=== PATIENT | male | born 1975 | race Hispanic/Latino ===

== ENCOUNTER 2023-07-24 11:32 | Inpatient (IN) | payer OTHER, SELFPAY ==
[2023-07-24 12:36] LABS: Absolute Lymphocytes (CBC) 1.7 K/uL (0.7-4.9); Hematocrit 38.9 % (39.6-49.0); Lymphocytes % 13.7 % (15.3-44.8); MCV 87.7 fL (80-100); MPV 8.1 fL (7.6-11.3); Platelets 260 thou/uL (152-406); RBC Red Blood Cell Count 4.44 M/uL (4.33-5.43)
[2023-07-24 12:42] LABS: Protime INR 1.12
[2023-07-24 12:59] LABS: Albumin 2.7 g/dL (3.4-5.0); Bilirubin Total 0.5 mg/dL (0.2-1.0); Potassium 3.3 mEq/L (3.5-5.1); Protein, Total 7.4 g/dL (6.4-8.2)
--- NOTE | 2023-07-24 13:20 | RAD REPORT ---
EXAM DESCRIPTION: RAD - Foot Right 3 View - 07/24/2023 12:56 pm CLINICAL HISTORY: PAIN COMPARISON: No comparisons TECHNIQUE: Right foot, 3 views. FINDINGS: No acute displaced fracture, dislocation or periosteal reaction. Sequelae of amputation of the fourth and fifth toes. Osseous irregularity along the head of the third and fifth metatarsals, as well as thinning and remodeling along the head of the fourth metatarsal wi th adjacent well corticated fragments. Overlying soft tissue irregularity and moderately pronounced s oft tissue swelling throughout the forefoot. No air or foreign body in the soft tissues. IMPRESSION: Questionable osseous irregularities involving the distal third-fifth metatarsals as abov e, which may be chronic, however underlying early or incompletely resolved osteomyelitis cannot be en tirely excluded. MRI would provide improved imaging sensitivity.
--- NOTE | 2023-07-24 14:09 | EDPHYS ---
Physician Documentation [facility] Name: Nikita Barros Age: 48 yrs Sex: Male : 1975 Arrival Date: 07/24/2023 Time: 11:32 Bed 19 Private MD: ED Physician Keisha Montenegro HPI: 07/24 14:46 This 48 yrs old Male presents to ER via Ambulatory with complaints of Wound kb Infection - Right foot. 14:46 The patient presents with cellulitis of the left first toe. Description: erythematous, kb swollen, warm. Onset: The symptoms/episode began/occurred 3 day(s) ago. Possible cause(s): unknown. Associated signs and symptoms: Pertinent positives: erythema, swelling. Modifying factors: the symptoms are alleviated by nothing, the symptoms are aggravated by nothing. Severity of symptoms: At their worst the symptoms were moderate, in the emergency department the symptoms are unchanged. The patient has not experienced similar symptoms in the past. The patient has not recently seen a physician. Historical: - Allergies: 11:53 No Known Allergies; ss - PMHx: 11:53 Diabetes mellitus; ss - Immunization history:: Client reports receiving the 2nd dose of the Covid vaccine. - Social history:: Smoking status: Patient denies any tobacco usage or history of. ROS: 14:44 Constitutional: Negative for fever, chills, and weight loss. kb 14:44 Skin: Positive for erythema, swelling, of the left first toe, wound. 14:44 All other systems are negative. Exam: 14:44 Constitutional: This is a well developed, well nourished patient who is awake, alert, kb and in no acute distress. Head/Face: Normocephalic, atraumatic. ENT: Moist Mucous membranes Cardiovascular: Regular rate Respiratory: Respirations even and unlabored. No increased work of breathing. Talking in full sentences MS/ Extremity: Pulses equal, no cyanosis. Neurovascular intact. Full, normal range of motion. Neuro: Awake and alert, GCS 15, oriented to person, place, time, and situation. Moves all extremities. Normal gait. 14:44 Skin: cellulitis, that is moderate, on the left first toe. Vital Signs: 11:51 Pulse 83; Resp 17; Temp 97.9(TE); Pulse Ox 100% ; Height 5 ft. 1 in. ; Pain 0/10; ss 11:53 BP 128 / 72; ss 12:57 BP 133 / 88; Pulse 78; Resp 20; Pulse Ox 99% on R/A; me1 14:00 BP 127 / 88; Pulse 79; Resp 17; Pulse Ox 100% on R/A; me1 14:30 BP 117 / 81; Pulse 79; Resp 17; Pulse Ox 100% on R/A; me1 15:49 BP 144 / 91; Pulse 76; Resp 17; Pulse Ox 97% on R/A; me1 16:37 BP 149 / 95; Pulse 79; Resp 18; Pulse Ox 100% on R/A; me1 11:51 Pain Scale: Adult ss MDM: 11:54 Patient medically screened. kb 14:06 Differential diagnosis: cellulitis, osteomyelitis, abscess, diabetic ulcer. Data kb reviewed: vital signs, nurses notes. Consideration of Admission/Observation Patient was admitted/placed on observation. Escalation of care including admission/observation considered. Management of patient was discussed with the following: Hospitalist: Dr Amaro accepts pt for admission. Counseling: I had a detailed discussion with the patient and/or guardian regarding the historical points, exam findings, and any diagnostic results supporting the discharge/admit diagnosis, lab results, radiology results, the need for further work-up and treatment in the hospital. 07/24 11:57 Order name: Blood Culture Adult (2) 07/24 11:57 Order name: CBC with Diff; Complete Time: 12:40 kb 07/24 11:57 Order name: CMP; Complete Time: 13:03 kb 07/24 11:57 Order name: Lactate w/ 2H reflex if indic.; Complete Time: 12:56 kb 07/24 11:57 Order name: Protime (+inr); Complete Time: 12:46 kb 07/24 11:57 Order name: Ptt, Activated; Complete Time: 12:46 kb 07/24 12:33 Order name: Glucose, Ancillary Testing; Complete Time: 12:35 EDMS 07/24 14:30 Order name: Basic Metabolic Panel EDMS 07/24 14:30 Order name: Basic Metabolic Panel EDMS 07/24 14:30 Order name: CBC with Automated Diff EDMS 07/24 14:30 Order name: CBC with Automated Diff EDMS 07/24 14:32 Order name: Hemoglobin A1c [facility] 07/24 14:32 Order name: Lipid Profile [facility] 07/24 14:32 Order name: Thyroid Stimulating Hormone [facility] 07/24 14:55 Order name: Glucose, Ancillary Testing; Complete Time: 15:08 [facility] 07/24 16:05 Order name: Glucose, Ancillary Testing; Complete Time: 16:06 [facility] 07/24 11:58 Order name: Foot Right 3 View XRAY; Complete Time: 13:22 kb 07/24 14:41 Order name: MRA Foot Right [facility] 07/24 11:57 Order name: EKG; Complete Time: 11:58 kb 07/24 14:30 Order name: 60g Consistent Carbohydrate (ADA 1800/1999) [facility] 07/24 14:41 Order name: CONS Physician Consult [facility] 07/24 11:57 Order name: Accucheck; Complete Time: 12:28 kb 07/24 11:57 Order name: Cardiac monitoring; Complete Time: 12:28 kb 07/24 11:57 Order name: EKG - Nurse/Tech; Complete Time: 12:28 kb 07/24 11:57 Order name: IV Saline Lock - Large Bore; Complete Time: 12:28 kb 07/24 11:57 Order name: Labs collected and sent; Complete Time: 12:28 kb 07/24 11:57 Order name: O2 Per Protocol; Complete Time: 12:28 kb 07/24 11:57 Order name: O2 Sat Monitoring; Complete Time: 12:29 kb 07/24 11:57 Order name: Vital Signs; Complete Time: 12:29 kb Administered Medications: 15:03 Drug: NS 0.9% IV 1000 ml Route: IV; Rate: 1000 ml; Site: right antecubital; me1 16:38 Follow up: IV Status: Completed infusion; IV Intake: 1000ml me1 15:03 Drug: Potassium Chloride PO 20 mEq Route: PO; me1 15:48 Follow up: Response: No adverse reaction me1 15:03 Drug: Cefepime IVPB 1 grams Route: IVPB; Rate: 200 ml/hr; Infused Over: 30 mins; [place] [facility] [place]; 15:38 Follow up: IV Status: Completed infusion; IV Intake: 100ml me1 15:49 Follow up: Response: No adverse reaction me1 15:04 Drug: Insulin Regular Human IVP 5 units {Co-Signature: db (Sharon Castanon RN).} me1 Route: IVP; Site: right antecubital; 15:48 Follow up: Response: No adverse reaction me1 15:35 Drug: vancoMYCIN IVPB 1 grams Route: IVPB; Infused Over: 2 hrs; Site: right antecubital;me1 Point of Care Testing: Blood Glucose: 12:31 Blood Glucose: 417 mg/dL; me1 15:53 Blood Glucose: 157 mg/dL; me1 Ranges: Critical Glucose Levels:Adult <50 mg/dl or >400 mg/dl <40 mg/dl or >180 mg/dl Disposition: 19:07 Co-signature as Attending Physician, Keisha Montenegro I agree with the assessment ci and plan of care. I reviewed the patient's care provided by the Advanced Practice Provider and agree with the diagnosis and treatment plan. Disposition Summary: 07/24/23 14:08 Hospitalization Ordered Hospitalization Status: Inpatient Admission kb Provider: Christian Amaro Location: Telemetry/[facility] (Inpatient) kb Condition: Stable kb Problem: new kb Symptoms: are unchanged kb Bed/Room Type: Standard kb Room Assignment: 405(07/24/23 15:11) ds4 Diagnosis - Diabetes mellitus due to underlying condition with hyperglycemia kb - Cellulitis of left lower limb - foot kb - Foot Laceration/ Open wound of foot kb Forms: - Medication Reconciliation Form kb - SBAR form kb - Leadership Thank You Letter kb Signatures: Dispatcher [employer] Verenice Michael, MAYITO LUGOP-Angy Dotson RN ROHAN Allen Crocker ds4 Marly Hsu RN RN mt1 Keisha Montenegro Danielle RN db Corrections: (The following items were deleted from the chart) 15:11 14:08 kb ds4
--- NOTE | 2023-07-24 14:09 | ER ---
Nurse's Notes [facility] Name: Nikita Barros Age: 48 yrs Sex: Male : 1975 Arrival Date: 07/24/2023 Time: 11:32 Bed 19 Private MD: Diagnosis: Diabetes mellitus due to underlying condition with hyperglycemia;Cellulitis of left lower limb-foot;Foot Laceration/ Open wound of foot Presentation: 07/24 11:51 Chief complaint: Patient states: infection to R foot x 3 days. HX of DM. Denies fever. ss Coronavirus screen: Client denies travel out of the [place] in the last 14 days. Ebola Screen: Patient denies exposure to infectious person. Patient denies travel to an Ebola-affected area in the 21 days before illness onset. Initial Sepsis Screen: Does the patient meet any 2 criteria? No. Patient's initial sepsis screen is negative. Does the patient have a suspected source of infection? Yes: Skin breakdown/wound. Risk Assessment: Do you want to hurt yourself or someone else? Patient reports no desire to harm self or others. Onset of symptoms was July 21, 2023. 11:51 Method Of Arrival: Ambulatory ss 11:51 Acuity: [place] 3 ss Historical: - Allergies: 11:53 No Known Allergies; ss - PMHx: 11:53 Diabetes mellitus; ss - Immunization history:: Client reports receiving the 2nd dose of the Covid vaccine. - Social history:: Smoking status: Patient denies any tobacco usage or history of. Screenin:55 [facility] ED Fall Risk Assessment (Adult) History of falling in the last 3 months, me1 including since admission No falls in past 3 months (0 pts) Confusion or Disorientation No (0 pts) Intoxicated or Sedated No (0 pts) Impaired Gait No (0 pts) Mobility Assist Device Used No (0 pt) Altered Elimination No (0 pt) Score/Fall Risk Level 0 - 2 = Low Risk. Abuse screen: Denies threats or abuse. Nutritional screening: No deficits noted. Tuberculosis screening: No symptoms or risk factors identified. Assessment: 12:55 General: Appears comfortable, well groomed, well developed, well nourished, Behavior is me1 calm, cooperative, appropriate for age, Reports chills for 2-3 days, fever for fever, chills and infection to right great toe and foot that started about 3 days ago. Pain: Denies pain. Neuro: Level of Consciousness is awake, alert, obeys commands, Oriented to person, place, time, situation, Appropriate for age. Cardiovascular: Capillary refill < 3 seconds Patient's skin is warm and dry. Respiratory: Airway is patent Respiratory effort is even, unlabored, Respiratory pattern is regular, symmetrical. Derm: Wound noted right great toe and foot. Vital Signs: 11:51 Pulse 83; Resp 17; Temp 97.9(TE); Pulse Ox 100% ; Height 5 ft. 1 in. ; Pain 0/10; ss 11:53 BP 128 / 72; ss 12:57 BP 133 / 88; Pulse 78; Resp 20; Pulse Ox 99% on R/A; me1 14:00 BP 127 / 88; Pulse 79; Resp 17; Pulse Ox 100% on R/A; me1 14:30 BP 117 / 81; Pulse 79; Resp 17; Pulse Ox 100% on R/A; me1 15:49 BP 144 / 91; Pulse 76; Resp 17; Pulse Ox 97% on R/A; me1 16:37 BP 149 / 95; Pulse 79; Resp 18; Pulse Ox 100% on R/A; me1 11:51 Pain Scale: Adult ss ED Course: 11:36 Patient arrived in ED. im 11:53 Triage completed. ss 11:53 Arm band placed on left wrist. ss 11:54 Verenice Tyler FNP-C [facility]. kb 11:54 Keisha Montenegro is Attending Physician. kb 12:09 Marly Hsu, ROHAN is Primary Nurse. me1 12:28 Inserted saline lock: 20 gauge in right antecubital area, using aseptic technique. me1 12:29 CBC with Diff Sent. me1 12:29 CMP Sent. me1 12:29 Lactate w/ 2H reflex if indic. Sent. me1 12:29 Protime (+inr) Sent. me1 12:29 Ptt, Activated Sent. me1 12:55 Patient has correct armband on for positive identification. Bed in low position. Call me1 light in reach. Side rails up X 1. Provided Education on: POC. Verbalized understanding.. 12:55 No provider procedures requiring assistance completed. me1 12:58 Foot Right 3 View XRAY In Process Unspecified. EDMS 14:08 Christian Amaro MD is Hospitalizing Provider. kb 14:37 Blood Culture Adult (2) Sent. me1 14:52 Hemoglobin A1c Sent. me1 15:57 Patient admitted, IV remains in place. me1 Administered Medications: 15:03 Drug: NS 0.9% IV 1000 ml Route: IV; Rate: 1000 ml; Site: right antecubital; me1 16:38 Follow up: IV Status: Completed infusion; IV Intake: 1000ml me1 15:03 Drug: Potassium Chloride PO 20 mEq Route: PO; me1 15:48 Follow up: Response: No adverse reaction me1 15:03 Drug: Cefepime IVPB 1 grams Route: IVPB; Rate: 200 ml/hr; Infused Over: 30 mins; [place] [facility] [place]; 15:38 Follow up: IV Status: Completed infusion; IV Intake: 100ml me1 15:49 Follow up: Response: No adverse reaction me1 15:04 Drug: Insulin Regular Human IVP 5 units {Co-Signature: db (Sharon Castanon RN).} me1 Route: IVP; Site: right antecubital; 15:48 Follow up: Response: No adverse reaction me1 15:35 Drug: vancoMYCIN IVPB 1 grams Route: IVPB; Infused Over: 2 hrs; Site: right antecubital;me1 Medication: 12:55 VIS not applicable for this client. me1 Point of Care Testing: Blood Glucose: 12:31 Blood Glucose: 417 mg/dL; me1 15:53 Blood Glucose: 157 mg/dL; me1 Ranges: Intake: 15:38 IV: 100ml; Total: 100ml. me1 16:38 IV: 1000ml; Total: 1100ml. me1 Outcome: 14:08 Decision to Hospitalize by Provider. kb 15:57 Admitted to Med/surg accompanied by tech, via wheelchair, room 405, with chart, Report me1 called to ROHAN Sosa. 15:57 Condition: stable 15:57 Instructed on the need for admit. 16:38 Patient left the ED. me1 Signatures: Dispatcher [employer] MARIELOSCA Verenice Tyler, MAYITO BOWEN-Angy Dotson, RN RN Janae Tierney Michelle, RN RN ms1 Sharon Castanon RN db Corrections: (The following items were deleted from the chart) 15:12 14:00 BP 117 / 81; Pulse 79bpm; Resp 17bpm; Pulse Ox 100% RA; me1 me1
[2023-07-24] MEDS ORDERED: MORPHINE 2 MG/ML SYR IV PRN (14:23)
[2023-07-24] MEDS ORDERED: ONDANSETRON 4 MG/2 ML VIAL IV PRN (14:23)
[2023-07-24] MEDS: INSULIN GLARGINE 100 UNIT/ML SQ SCH (14:32)
--- NOTE | 2023-07-24 14:39 | P.HP ---
Certification for Inpatient With expected LOS: >2 Midnights Practitioner: I am a practitioner with admitting privileges, knowledge of patient current condition, hospital course, and medical plan of care. Services: Services provided to patient in accordance with Admission requirements found in Title 42 Section 412.3 of the Code of Federal Regulations Patient History Date of Service: 07/24/23 Reason for admission: Celluitis of Right foot History of Present Illness: Age 48 AW 3 day Hx of of pain in theleft foot and swelling Allergies No Known Allergies Allergy (Unverified 07/24/23 14:57) - Past Medical/Surgical History -: Diabetes Mellitus -: AMputation of R toes Physical Examination - Vital Signs Temperature: 97.9 F Blood Pressure: 128/72 Pulse: 83 Respirations: 17 Pulse Ox (%): 100 - Physical Exam General: Alert, In no apparent distress, Oriented x3 HEENT: Atraumatic Neck: Supple Respiratory: Clear to auscultation bilaterally Cardiovascular: Edema Gastrointestinal: Normal bowel sounds, Soft and benign Musculoskeletal: No clubbing Integumentary: Other (R foot swollen infection with amputation of digits) - Studies Laboratory Data (last 24 hrs) 07/24/23 07/24/23 07/24/23 12:22 12:22 12:22 WBC 12.30 H Hgb 13.2 L Hct 38.9 L Plt Count 260 PT 12.3 INR 1.12 APTT 32.3 Sodium 130 L Potassium 3.3 L BUN 12 Creatinine 1.03 Glucose 413 H* Total Bilirubin 0.5 AST 6 L ALT 15 L Alkaline Phosphatase 81 Assessment and Plan - Problems (Diagnosis) (1) Cellulitis of right foot Current Visit: Yes Status: Acute Plan: Hx of DM poorly controlled. Tx with insulin, Antibiotics.and metformin/ labs reviewed/ MRI RO osteomyelitis Xray of foot Questionable osseous irregularities involving the distal third-fifth metatarsals as above, which may be chronic, however underlying early or incompletely resolved osteomyelitis cannot be entirely excluded. MRI would provide improved imaging sensitivity - Advance Directives Does patient have a Living Will: No Does patient have a Durable POA for Healthcare: No
[2023-07-24] MEDS ORDERED: VANCOMYCIN 1 GM/VIAL ONE (14:58)
[2023-07-24] MEDS ORDERED: NA CHLORIDE 0.9% 1,000 ML ONE (14:59)
[2023-07-24] MEDS ORDERED: CEFEPIME 1 GM/VIAL ONE (14:59)
[2023-07-24] MEDS ORDERED: NA CHLORIDE 0.9% 100 ML ONE (14:59)
[2023-07-24] MEDS ORDERED: INSULIN -REGULAR HUMAN 50 UNIT/0.5 ML ML ONE (14:59)
[2023-07-24] MEDS ORDERED: NA CHLORIDE 0.9% 250 ML ONE (15:00)
[2023-07-24] MEDS: POTASSIUM CL SA 10 MEQ TAB PO SCH ×2 (15:00→21:24)
[2023-07-24] MEDS ORDERED: VANCOMYCIN 1 GM in NA CHLORIDE 0.9% 250 ML IVPB ONE (15:00)
[2023-07-24] MEDS: INSULIN -REGULAR HUMAN 50 UNIT/0.5 ML ML SQ SCH ×2 (16:30→21:25)
[2023-07-24] MEDS: NA CHLORIDE 0.9% 1,000 ML IV SCH (16:59)
[2023-07-24] MEDS: Levofloxacin 750mg IV 750 MG/150 ML BAG IV SCH (16:59)
[2023-07-24] MEDS: METFORMIN HCL 500 MG TAB PO SCH (17:01)
[2023-07-24] MEDS: VANCOMYCIN 1 GM in NA CHLORIDE 0.9% 250 ML IVPB SCH (21:24)
[2023-07-25] MEDS: NA CHLORIDE 0.9% 1,000 ML IV SCH ×2 (01:00→11:00)
[2023-07-25 06:38] LABS: Absolute Lymphocytes (CBC) 1.4 K/uL (0.7-4.9); Hematocrit 37.3 % (39.6-49.0); Lymphocytes % 14.6 % (15.3-44.8); MCV 87.1 fL (80-100); MPV 7.9 fL (7.6-11.3); Platelets 263 thou/uL (152-406); RBC Red Blood Cell Count 4.28 M/uL (4.33-5.43)
[2023-07-25 06:54] LABS: Potassium 3.2 mEq/L (3.5-5.1)
[2023-07-25 07:05] LABS: Thyroid Stimulating Hormone 1.87 uIU/mL (0.358-3.740)
--- NOTE | 2023-07-25 07:07 | P.PN ---
Date of Service: 07/25/23 Subjective: Patient with significant erythema and swelling in the right foot. Patient appears to have osteomyelitis. MRI is pending. Physical Exam: Vitals: reviewed GEN: Alert, oriented, NAD CV: Regular rate & rhythm, no edema Pulm: Respirations are clear bilaterally ABD: Soft, nontender, nondistended MSK: No joint tenderness Integumentary: R foot swollen infection with amputation of digits Neuro: No focal deficits Problem List: 1. Cellulitis of right foot/osteomyelitis of the right foot 2. DM2 PLAN 1. Continue with IV antibiotic 2. Continue with local wound care 3. Wound care consultation/surgical consultation 4. Gentle IV hydration 5. Monitor CBC 6. Strict blood sugar monitoring; HgA1c pending 7. Pain control 8. Arrange for IV abx 9. GI and DVT prophylaxis
--- NOTE | 2023-07-25 07:47 | RAD REPORT ---
EXAM DESCRIPTION: US - Lower Extremity Arterial Bilat - 07/25/2023 12:07 am CLINICAL HISTORY: Leg pain COMPARISON: None FINDINGS: The right common femoral, superficial femoral and popliteal arteries demonstrate triphasic waveforms The right posterior tibial and dorsalis pedis arteries demonstrate monophasic waveforms The left common femoral, superficial femoral, popliteal, posterior tibial and left dorsalis pedis art eries demonstrate triphasic waveforms 3 x 1.6 centimeter right inguinal lymph node Grayscale, color and spectral analysis performed on all vessels IMPRESSION: Right lower extremity arteries appear normal Mild distal left lower extremity arterial disease 3 x 1.6 centimeter right inguinal lymph node nonspecific. Follow-up ultrasound in 3 months is recomme nded to assess stability/resolution
[2023-07-25] MEDS: VANCOMYCIN 1 GM in NA CHLORIDE 0.9% 250 ML IVPB SCH ×2 (09:00→21:17)
--- NOTE | 2023-07-25 09:48 | RAD REPORT ---
EXAM DESCRIPTION: MRIFoot Right Wo Cont07/25/2023 9:31 am CLINICAL HISTORY: Right foot pain and swelling COMPARISON: July 24, 2023 TECHNIQUE: Axial, sagittal and coronal magnetic resonance imaging of the right foot was obtained. FINDINGS: Abnormal signal involves almost the entire first proximal and distal phalanges compatible with osteomyelitis. Abnormal signal involves the distal aspect fifth metatarsal. Distal fifth metatarsal resection. Abnormal signal involves third metatarsal head and proximal aspect of the third proximal phalanx Amputation fourth digit IMPRESSION: Large area of osteomyelitis first distal and first proximal phalanx Small areas of osteomyelitis involving the third metatarsal head and proximal aspect of the third pro ximal phalanx Small area of osteomyelitis distal and fifth metatarsal
[2023-07-25] MEDS: METFORMIN HCL 500 MG TAB PO SCH ×2 (10:14→16:59)
[2023-07-25] MEDS: INSULIN GLARGINE 100 UNIT/ML SQ SCH (10:15)
[2023-07-25] MEDS: POTASSIUM CL SA 10 MEQ TAB PO SCH ×2 (10:15→21:18)
[2023-07-25] MEDS: INSULIN -REGULAR HUMAN 50 UNIT/0.5 ML ML SQ SCH ×4 (10:15→21:50)
[2023-07-25 14:23] VITALS: BMI 34.2
--- NOTE | 2023-07-25 15:46 | CON ---
History Of Present Illness: Mr. Barros is a 48-year-old male coming in with osteomyelitis of right b ig toe and cellulitis of right foot with a diabetic foot ulcer. The patient is noncompliant even tho ugh he is saying that he is taking metformin his hemoglobin A1c is close to 12. Denies any pain in h is foot or fevers at this time. Denies any other medical problems. Past Medical History: As per HPI. Past Surgical History: Noncontributory. Social History: Tobacco positive. Alcohol negative. Family History: Noncontributory. Medications: Metformin, Levaquin, vancomycin. See MAR for other medications. Allergies: NO KNOWN DRUG ALLERGIES. Review of Systems: A 10-point review was performed. Physical Examination: General: This is a 48-year-old male, lying in bed, not in any acute cardiopulmonary distress. Vital Signs: Temperature 97.8, pulse 81, respirations 16, blood pressure 161/86. HEENT: Unremarkable. Neck: Supple. Lungs: Basal crackles. Abdomen: Soft, nontender. Bowel sounds present. Extremities: No edema except the right big toe with 3+ edema, erythematous changes, and ulceration n oted with foul odor. Laboratory Data: Shows WBC 9.4 down from 12.3, hemoglobin 12.8, platelets are 263. Chemistry shows BUN of 6, creatinine 0.6, glucose is 217. Hemoglobin A1c is 11.5. Lactic acid is 1.8. MRI of the f oot shows the patient has large area of osteomyelitis involving first distal and first proximal phala nx, a small area of osteomyelitis noted in the third metatarsal head and proximal aspect of the third proximal phalanx, a small area of osteomyelitis also noted in distal fifth metatarsal. Assessment And Plan: Osteomyelitis of the first phalanx, third and fifth distal metatarsal head. We will recommend to continue IV antibiotic for 6 weeks. Wound cultures to be done. Betadine Tuesday, Tuesday, Tuesday. Cover with gauze. Keep leg elevated when possible. Diabetic neuropathy. Recomm end to have tighter control of sugar being followed by hot box operator or diabetic specialist. We wi ll follow the patient closely. Recommend IV antibiotic, vancomycin, and Levaquin for 6 weeks. NF/MODL Voice ID: [id number] Report ID: [id number]
[2023-07-25] MEDS ORDERED: METHYLPREDNISOLONE 40 MG INJ IV ONE (16:57)
[2023-07-25] MEDS: Levofloxacin 750mg IV 750 MG/150 ML BAG IV SCH (16:59)
--- NOTE | 2023-07-25 19:06 | EKG ---
Test Date: 2023-07-24 Test Time: 12:21:58 Senior Software Project Manager: RAYA MEASUREMENT RESULTS: Intervals: Rate: 82 FL: 150 QRSD: 78 QT: 378 QTc: 441 [place]: P: 49 FL: 150 QRS: 85 T: -5 INTERPRETIVE STATEMENTS: Normal sinus rhythm Abnormal QRS-T angle, consider primary T wave abnormality Abnormal ECG Compared to ECG 09/24/2008 23:49:59 T-wave abnormality now present Electronically Signed On 07-25-23 19:04:19 CDT by Jonny Laughlin
[2023-07-26] MEDS ORDERED: NA CHLORIDE 0.9% 0 ML ONE (08:40)
[2023-07-26 08:42] LABS: Potassium 3.5 mEq/L (3.5-5.1)
[2023-07-26] MEDS: POTASSIUM CL SA 10 MEQ TAB PO SCH ×2 (08:55→21:02)
[2023-07-26] MEDS: INSULIN -REGULAR HUMAN 50 UNIT/0.5 ML ML SQ SCH ×4 (08:55→21:00)
[2023-07-26] MEDS: METFORMIN HCL 500 MG TAB PO SCH ×2 (08:55→16:21)
[2023-07-26] MEDS: INSULIN GLARGINE 100 UNIT/ML SQ SCH (08:56)
[2023-07-26] MEDS: VANCOMYCIN 1.5 GM in NA CHLORIDE 0.9% 500 ML IVPB SCH ×2 (10:28→21:01)
[2023-07-26] MEDS: Levofloxacin 750mg IV 750 MG/150 ML BAG IV SCH (15:47)
[2023-07-26] MEDS: Mupirocin NASAL 2 APPL/1 GM TUBE NAS SCH (21:00)
--- NOTE | 2023-07-26 23:18 | P.PN ---
Date of Service: 07/26/23 Subjective: Patient continues to do well with no new complaints. Patient's clinical symptoms are stable. Arranging for IV antibiotic. Physical Exam: Vitals: reviewed GEN: Alert, oriented, NAD CV: Regular rate & rhythm, no edema Pulm: Respirations are clear bilaterally ABD: Soft, nontender, nondistended MSK: No joint tenderness Integumentary: R foot swollen infection with amputation of digits Neuro: No focal deficits Problem List: 1. Cellulitis of right foot/osteomyelitis of the right foot 2. DM2 PLAN 1. Continue with IV antibiotic 2. Continue with local wound care 3. Wound care consultation/ID & surgical consultation pending 4. Heplock IV 5. Monitor labs 6. Strict blood sugar monitoring; HgA1c pending 7. Pain control 8. Arrange for outpt IV abx 9. GI and DVT prophylaxis
[2023-07-27] MEDS: POTASSIUM CL SA 10 MEQ TAB PO SCH ×2 (07:58→20:48)
[2023-07-27] MEDS: Mupirocin NASAL 2 APPL/1 GM TUBE NAS SCH ×2 (07:58→20:48)
[2023-07-27] MEDS: INSULIN GLARGINE 100 UNIT/ML SQ SCH (07:58)
[2023-07-27] MEDS: METFORMIN HCL 500 MG TAB PO SCH ×2 (07:58→16:40)
[2023-07-27] MEDS: INSULIN -REGULAR HUMAN 50 UNIT/0.5 ML ML SQ SCH ×4 (07:59→20:48)
[2023-07-27] MEDS: VANCOMYCIN 1.5 GM in NA CHLORIDE 0.9% 500 ML IVPB SCH ×2 (07:59→20:47)
--- NOTE | 2023-07-27 13:45 | RAD REPORT ---
EXAM DESCRIPTION: Chest Single View CLINICAL HISTORY: 8 years Male, left PICC line Placement COMPARISON: None IMPRESSION: Placement of left upper extremity PICC terminating in the right atrium. Low lung volumes. No focal consolidation. No pleural effusion. No pneumothorax. Cardiomediastinal silhouette is within normal limits. No acute osseous abnormality. Electronically signed by: David Cortez DO 07/27/2023 1:38 AM CDT Due to temporary technical issues with the PACS/Fluency reporting system, reports are being signed by the in house radiologist without review as a courtesy to ensure prompt reporting. The interpreting r adiologist is fully responsible for the content of the report.
--- NOTE | 2023-07-27 13:46 | RAD REPORT ---
EXAM DESCRIPTION: X-ray single view chest. CLINICAL HISTORY: 48 years Male, Left PICC repositioned (pulled back 4cm) COMPARISON: 07/27/2023 at 1:20 AM TECHNIQUE: Single portable x-ray view of the chest performed on 07/27/2023 at 5:25 AM FINDINGS: The lungs are hypoinflated and are grossly clear. No focal airspace process is identified. There is no evidence of a pneumothorax. The cardiac silhouette is normal in size and configuration. The mediastinal contours are normal. No acute osseous abnormality is identified. No acute soft tissue abnormalities are seen. Lines and tubes: The tip of the left upper extremity PICC line catheter has been repositioned and n ow terminates in the region of the superior vena cava Free air: None IMPRESSION: The tip of the left upper extremity PICC line catheter has been repositioned and now ter minates in the region of the superior vena cava. Electronically signed by: Grazyna Joshi DO 07/27/2023 5:58 AM CDT Due to temporary technical issues with the PACS/Fluency reporting system, reports are being signed by the in house radiologist without review as a courtesy to ensure prompt reporting. The interpreting r adiologist is fully responsible for the content of the report.
[2023-07-27] MEDS: Levofloxacin 750mg IV 750 MG/150 ML BAG IV SCH (14:34)
[2023-07-28] MEDS: INSULIN -REGULAR HUMAN 50 UNIT/0.5 ML ML SQ SCH ×4 (07:30→21:26)
[2023-07-28] MEDS: VANCOMYCIN 1.5 GM in NA CHLORIDE 0.9% 500 ML IVPB SCH (09:00)
[2023-07-28] MEDS: Mupirocin NASAL 2 APPL/1 GM TUBE NAS SCH ×2 (09:11→21:31)
[2023-07-28] MEDS: POTASSIUM CL SA 10 MEQ TAB PO SCH ×2 (09:11→21:16)
[2023-07-28] MEDS: METFORMIN HCL 500 MG TAB PO SCH ×2 (09:11→18:30)
[2023-07-28] MEDS: INSULIN GLARGINE 100 UNIT/ML SQ SCH (09:12)
[2023-07-28] MEDS: VANCOMYCIN 1.75 GM in NA CHLORIDE 0.9% 500 ML IVPB SCH ×2 (10:30→21:16)
[2023-07-28] MEDS: Levofloxacin 750mg IV 750 MG/150 ML BAG IV SCH (14:27)
[2023-07-28] MEDS ORDERED: NA CHLORIDE 0.9% 100 ML ONE (21:24)
[2023-07-29] MEDS: POTASSIUM CL SA 10 MEQ TAB PO SCH ×2 (08:46→21:59)
[2023-07-29] MEDS: Mupirocin NASAL 2 APPL/1 GM TUBE NAS SCH ×2 (08:46→22:00)
[2023-07-29] MEDS: METFORMIN HCL 500 MG TAB PO SCH ×2 (08:46→16:04)
[2023-07-29] MEDS: INSULIN GLARGINE 100 UNIT/ML SQ SCH (08:46)
[2023-07-29] MEDS: INSULIN -REGULAR HUMAN 50 UNIT/0.5 ML ML SQ SCH ×4 (08:47→22:01)
--- NOTE | 2023-07-29 08:50 | P.PN ---
Subjective Date of Service: 07/29/23 Chief Complaint: Celluitis of Right foot Subjective: No new changes, No C/O voiced Review of Systems Unremarkable Physical Examination - Vital Signs Temperature: 98.7 F Blood Pressure: 132/79 Pulse: 74 Respirations: 14 Pulse Ox (%): 97 - Physical Exam General: Alert, In no apparent distress HEENT: Atraumatic, Normocephalic Neck: Supple, JVD not distended Respiratory: Clear to auscultation bilaterally, Normal air movement Cardiovascular: Regular rate/rhythm Gastrointestinal: Normal bowel sounds, Non-distended Musculoskeletal: No clubbing Integumentary: Diabetic ulcer (left foot) - Studies - Reviewed Microbiology Data (last 24 hrs): - Reviewed Imagings Data: - Reviewed Medications List Reviewed: Yes Assessment And Plan - Plan Problem List Osteomyelitis Left Foot Diabetic foot ulcer Diabetes mellitus type II Diabetic Foot Ulcer of Left Foot Osteomyelitis - Wound culture with Streptococcus agalactiae group B - MRI Left Foot 07/25: " Large area of osteomyelitis first distal and first proximal phalanx. Small areas of osteomyelitis involving the third metatarsal head and proximal aspect of the third proximal phalanx. Small area of osteomyelitis distal and fifth metatarsal " - Patient is on Levaquin and Vancomycin (started 07/24) Recommendations Osteomyelitis: patient will require 6 weeks of antibiotic therapy (07/24 to 09/04) Concerned about his sugar control and noncompliance. Uncontrolled diabetes (HgbA1c 11.5). Recommend continuing with IV antibiotics for best outcome. Case discussed with Colby Shin
[2023-07-29] MEDS: VANCOMYCIN 1.75 GM in NA CHLORIDE 0.9% 500 ML IVPB SCH ×2 (09:46→22:00)
--- NOTE | 2023-07-29 13:18 | RAD REPORT ---
EXAM DESCRIPTION: US - Lower Extremity Artery [facility] - 07/29/2023 12:18 pm CLINICAL HISTORY: Leg pain COMPARISON: None FINDINGS: The right common femoral, superficial femoral ,popliteal and posterior tibial arteries demonstrate tr iphasic waveforms The right dorsalis pedis arteries demonstrate monophasic waveform Grayscale, color and spectral analysis performed on all vessels IMPRESSION: Mild distal lower extremity arterial disease
[2023-07-29] MEDS ORDERED: MIDAZOLAM HCL 2 MG/2 ML INJ ONE ×2 (13:35→16:16)
[2023-07-29] MEDS ORDERED: FENTANYL CITR 100 MCG/2 ML ONE ×2 (13:35→16:16)
[2023-07-29] MEDS ORDERED: dexAMETHasone 10 MG/ML VIAL ONE (13:35)
[2023-07-29] MEDS ORDERED: EPINEPHRINE/PF 1 MG/ML AMP ONE (13:35)
[2023-07-29] MEDS ORDERED: LIDOCAINE 1% MPF 5 ML VIAL ONE (13:35)
[2023-07-29] MEDS ORDERED: NA CHLORIDE 0.9% 1,000 ML ONE (13:45)
[2023-07-29] MEDS: Levofloxacin 750mg IV 750 MG/150 ML BAG IV SCH (14:32)
[2023-07-29] MEDS ORDERED: BUPIVACAINE 0.25% PF 30 ML VIAL ONE (14:50)
--- NOTE | 2023-07-29 17:00 | P.OP ---
Preoperative diagnosis: RIGHT Great Toe Osteomyelitis, 5th Metatarsal Necrotic Wound Postoperative diagnosis: RIGHT Great Toe Osteomyelitis, 5th Metatarsal Necrotic Wound Primary procedure: Amputation of RIGHT Great Toe to MT Joint Secondary procedure: Excisional Debridement of 5th Metatarsal Necrotic Wound Anesthesia: GETA + Local Estimated blood loss: <10cc Specimen: RIGHT Great Toe, Debridement Tissue Findings: RIGHT Great Toe Osteomyelitis w/ abscess, 5th Metatarsal Necrotic Wound Complications: None Transferred to: Recovery Room Condition: Good
[2023-07-29 17:35] VITALS: O2SAT 97
--- NOTE | 2023-07-29 22:53 | OP ---
Date of Procedure: 07/29/2023 Surgeon: Amol Meza MD, Preoperative Diagnosis: Right great toe osteomyelitis, fifth metatarsal necrotic wound. Postoperative Diagnosis: Right great toe osteomyelitis, fifth metatarsal necrotic wound. Procedure Performed: An amputation of right great toe to the metatarsophalangeal joint. Secondary p rocedure, excisional debridement of fifth metatarsal necrotic wound. Anesthesia: Regional block plus local. Estimated Blood Loss: 10 cc. Specimen: Right great toe and debridement tissue. Findings: Right great toe osteomyelitis with abscess and fifth metatarsal necrotic wound. Complications: None. Disposition: Patient transferred to recovery room in good condition. Procedure In Detail: After informed consent was obtained, patient was brought to the operating room, prepped and draped in the usual sterile fashion after adequate anesthesia was achieved with a region al block. I placed additional local anesthetic of 0.25% Marcaine circumferentially around the right great toe and demarcated an area based on the dorsal flap, which was the only area of viable tissue. After I marked this area down, I used a 15 blade to cut down through subcutaneous tissues circumfere ntially around following the marking around the right great toe. I ultimately dissected back using e lectrocautery and dissection continued down to the layer of the periosteum. I then used a periosteal elevator to push back tissue up to the metatarsophalangeal joint. I then used a combination of joaquim p dissection and electrocautery to remove the right great toe at the metatarsophalangeal joint. This was sent off for pathologic examination. The area was copiously irrigated. There was 1 bleeding ve ssel encountered and this was easily ligated using electrocautery at this point. I then proceeded to irrigate the area copiously and performed minimal hemostatic maneuver at this point after the area w as cleansed appropriately and good hemostasis was achieved. I reapproximated the edges based on the plantar flap using interrupted 2-0 nylon suture with vertical mattress sutures with good approximatio n of tissues. A sterile dressing was placed over top. I then turned my attention to the fifth metat arsal where a previous amputation was performed. There was a black area of necrosis. This was circu mferentially dissected around and had some superficial wound in this area. I circumferentially disse cted this area out using a 15 blade down to subcutaneous tissues and ultimately dissected out using e lectrocautery to remove all nonviable tissue. This was sent off for pathologic examination. The are a was copiously irrigated once again. At this point, the wound was then packed with Vashe soaked Ker lix and sterile dressing was placed over top. The patient tolerated the procedure well without compl ication. Transferred to PACU in good condition. All counts were correct at the end of the case. BHUMIKA/RE Voice ID: [id number] Report ID: [id number]
[2023-07-30] MEDS: Mupirocin NASAL 2 APPL/1 GM TUBE NAS SCH ×2 (09:00→21:00)
[2023-07-30] MEDS: POTASSIUM CL SA 10 MEQ TAB PO SCH ×2 (09:11→21:53)
[2023-07-30] MEDS: METFORMIN HCL 500 MG TAB PO SCH ×2 (09:11→17:00)
[2023-07-30] MEDS: INSULIN GLARGINE 100 UNIT/ML SQ SCH (09:12)
[2023-07-30] MEDS: VANCOMYCIN 1.75 GM in NA CHLORIDE 0.9% 500 ML IVPB SCH ×2 (09:14→21:43)
[2023-07-30] MEDS: INSULIN -REGULAR HUMAN 50 UNIT/0.5 ML ML SQ SCH ×4 (09:24→21:44)
[2023-07-30] MEDS: Levofloxacin 750mg IV 750 MG/150 ML BAG IV SCH (16:48)
--- NOTE | 2023-07-30 18:27 | CON ---
Date of Consultation: 07/29/2023 Reason For Consultation: Right foot cellulitis and osteomyelitis. History Of Present Illness: The patient is a [place]ik-speaking male who states he has been in the hos pital for several days after noting significant change in his right great toe. He had multiple surge cheryle before on the right foot in the past including amputation of the fifth digit on this [place] approximately 2 years ago with continued ongoing wound of that same side of his foot. Now, the a viola became black, necrotic and has stayed black ever since and he has had trouble dealing with this g oing forward. He noted significant swelling of his great toe, however, which can begin to get progre ssively larger, worse, and as such he came to the hospital when he began drainage from the area. He was treated with antibiotics for several days with no significant improvement and as such, concern fo r osteomyelitis arose. I was consulted to see the patient regarding possible osteomyelitis of the gr eat toe and infection in that toe leading to non-resolution with medical management alone. The patie nt does have a history of diabetes and peripheral arterial disease. He takes metformin. His A1c was in the 12-13 range by his report on the previous check, although he does not have a regular followup . Past Medical History: Significant for diabetes, amputation of right toe as described. Social History: He smokes cigarettes. He denies alcohol other than intermittent and occasionally. He denies any recreational drug use. Family History: Noncontributory. Home Medications: Include metformin. He was started on Levaquin and vancomycin at the hospital. He takes no other medications at home with regularity other than metformin. Review of Systems: 10-point review of systems other than HPI, he denies. Allergies: HE HAS NO KNOWN DRUG ALLERGIES. Physical Examination: General: He is awake, alert, and oriented. Psychiatric: Appropriate, conversive. HEENT: Normocephalic. His sclerae were anicteric, but he appears to have some rings around his iris . Oropharynx is clear. Poor dentition. Neck: Supple without JVD. Chest: Normal expansion and excursion. Cardiovascular: Regular rate and rhythm. Pulmonary: Clear to auscultation bilaterally. Abdomen: Soft. Extremities: Focused examination of the right lower extremity shows a swollen, tender, distended rig ht great toe with 2 areas of abscess, which are actively draining. There appears to be a chance of c ommunicating from the plantar aspect near the interphalangeal joint going from the plantar to the yady ignacio aspect. Both of these areas are draining pus. The toe was red, swollen. The redness extends to the mid foot area. In addition, there is black necrotic tissue, which is dry on the right fourth an d fifth web space of the same said foot and tenderness along the area. Vital Signs: The patient had a vital signs checked, which were a temperature of 97.8, pulse 75, resp iratory rate was 15, blood pressure 144/78, SpO2 94% on room air. Laboratory Data: He had a laboratory exam, which revealed a white blood cell count on 07/25 is 9.4, hemoglobin 12.8, hematocrit 37.3, platelet count was 74.8. His chemistry was last performed on 07/26 . He had imaging performed, which included a foot MRI on 07/25/2023, officially read as large area o f osteomyelitis of the first distal and first proximal phalanx, small areas of osteomyelitis along th e third metatarsal head and proximal aspect of the third proximal phalanx. Small area of osteomyelit is in the distal and fifth metatarsal. In addition, he had a Doppler study on 07/29, which was offic ially read as the right dorsalis pedis arteries demonstrated monophasic waveforms, the right common f emoral, superficial femoral pop, and posterior tibial arteries are triphasic waveforms. Assessment And Plan: This is a 48-year-old male who presents with signs and symptoms of an infected great toe with osteomyelitis abscess and active infection and I will treat it adequately with non-alex gical measure and antibiotic treatment and a chronic nonhealing wound to the fifth web space of the s do said right foot. 1.I have recommended amputation of the great toe for source control of this area. I have explained the risks, benefits, and alternatives of amputation of right great toe and debridement of the foot an d affected nonhealing tissues including, but not limited to bleeding, infection, damage to surroundin g tissues, need for ongoing wound care, trouble in the perioperative period related anesthesia, blood clots, heart attack, strokes. 2.I have explained the need for ongoing medical management to control his diabetes or else no wound care will be adequate. In addition, I have explained that we need to have his peripheral arterial sy stem and peripheral venous system evaluated more thoroughly, which we will help him make arrangements as an outpatient and that medical management is critical to improvement of this in addition to the w ound care that will likely be necessary going forward. I have explained that the patient is to be no nweightbearing on this area until we get significant improvement and I have cleared him for weightbea ring at this point. The patient displayed understanding of the above stated plan, agreed to proceed as indicated. BHUMIKA/RE Voice ID: [id number] Report ID: [id number]
[2023-07-31] MEDS: INSULIN -REGULAR HUMAN 50 UNIT/0.5 ML ML SQ SCH ×5 (00:39→21:00)
[2023-07-31] MEDS: POTASSIUM CL SA 10 MEQ TAB PO SCH ×2 (08:55→21:27)
[2023-07-31] MEDS: METFORMIN HCL 500 MG TAB PO SCH ×2 (08:55→18:10)
[2023-07-31] MEDS: INSULIN GLARGINE 100 UNIT/ML SQ SCH (08:56)
[2023-07-31] MEDS: VANCOMYCIN 1.75 GM in NA CHLORIDE 0.9% 500 ML IVPB SCH ×2 (12:00→21:28)
[2023-07-31] MEDS: Levofloxacin 750mg IV 750 MG/150 ML BAG IV SCH (18:10)
[2023-07-31] MEDS ORDERED: Mupirocin NASAL 2 APPL/1 GM TUBE NAS ONE (21:21)
[2023-07-31] MEDS: Mupirocin NASAL 2 APPL/1 GM TUBE NAS SCH (21:28)
--- NOTE | 2023-07-31 22:20 | P.PN ---
Date of Service: 07/27/23 Subjective: Pt with no new changes; spoke with ID and will arrange for outpatient IV antibiotic therapy. Physical Exam: Vitals: reviewed GEN: Alert, oriented, NAD CV: Regular rate & rhythm, no edema Pulm: Respirations are clear bilaterally ABD: Soft, nontender, nondistended MSK: No joint tenderness Integumentary: R foot swollen infection with amputation of digits Neuro: No focal deficits Problem List: 1. Cellulitis of right foot/osteomyelitis of the right foot 2. DM2 PLAN 1. Continue with IV antibiotic 2. Continue with local wound care 3. Wound care consultation/ID & surgical consultation appreciated 4. Heplock IV 5. Monitor labs 6. Strict blood sugar monitoring; HgA1c pending 7. Pain control 8. Arrange for outpt IV abx 9. GI and DVT prophylaxis
--- NOTE | 2023-07-31 22:24 | P.PN ---
Date of Service: 07/28/23 Subjective: Spoke to nursing staff. Patient's wound is fairly deep. We will get general surgery evaluation. Arranging for IV antibiotic therapy at discharge. Infusion company will discuss with patient regarding payment plan. Physical Exam: Vitals: reviewed GEN: Alert, oriented, NAD CV: Regular rate & rhythm, no edema Pulm: Respirations are clear bilaterally ABD: Soft, nontender, nondistended MSK: No joint tenderness Integumentary: R foot swollen infection with amputation of digits Neuro: Diminished sensations Problem List: 1. Cellulitis of right foot/osteomyelitis of the right foot 2. DM2 PLAN 1. Continue with IV antibiotic 2. Continue with local wound care 3. Wound care consultation/ID consultation appreciated; surgical consultation pending 4. Heplock IV 5. Monitor labs 6. Strict blood sugar monitoring; HgA1c pending 7. Pain control 8. Arrange for outpt IV abx 9. GI and DVT prophylaxis
--- NOTE | 2023-07-31 22:46 | P.PN ---
Date of Service: 07/29/23 Subjective: Patient is doing well with no new complaints. However, spoke with surgery and because of the amount of infection decision was made to proceed with amputation. Patient to go to the OR later today. Physical Exam: Vitals: reviewed GEN: Alert, oriented, NAD CV: Regular rate & rhythm, no edema Pulm: Respirations are clear bilaterally ABD: Soft, nontender, nondistended MSK: No joint tenderness Integumentary: R foot swollen infection with amputation of digits Neuro: Diminished sensations Problem List: 1. Cellulitis of right foot/osteomyelitis of the right foot 2. DM2 PLAN Plan of care as mentioned below: 1. Continue with IV antibiotic 2. Continue with local wound care; scheduled for I&D 3. Wound care consultation/ID consultation appreciated; surgical consultation appreciated 4. Gentle hydration 5. Monitor labs 6. Strict blood sugar monitoring; HgA1c pending 7. Pain control 8. Arrange for outpt IV abx 9. GI and DVT prophylaxis
--- NOTE | 2023-07-31 22:48 | P.PN ---
Date of Service: 07/30/23 Subjective: Patient denies any new complaints. Clinical symptoms are improving. Patient denies any new complaints. Physical Exam: Vitals: reviewed GEN: Alert, oriented, NAD CV: Regular rate & rhythm, no edema Pulm: Respirations are clear bilaterally ABD: Soft, nontender, nondistended MSK: No joint tenderness Integumentary: Patient with amputation of the big toe. Closed wound. Open wound to the lateral side of the right foot. Neuro: Diminished sensations; otherwise, no focal deficits Problem List: 1. Cellulitis of right foot/osteomyelitis of the right foot 2. DM2 PLAN Plan of care as mentioned below: 1. Continue with IV antibiotic 2. Continue with local wound care; postop day #1 from amputation 3. Wound care consultation/ID consultation appreciated; surgical consultation appreciated 4. Gentle hydration 5. Monitor labs 6. Strict blood sugar monitoring; HgA1c pending 7. Pain control 8. Arrange for outpt IV abx 9. GI and DVT prophylaxis
--- NOTE | 2023-07-31 22:49 | P.PN ---
Date of Service: 07/31/23 Subjective: Patient is doing well with no new complaints. Continue with wound care. Physical Exam: Vitals: reviewed GEN: Alert, oriented, NAD CV: Regular rate & rhythm, no edema Pulm: Respirations are clear bilaterally ABD: Soft, nontender, nondistended MSK: No joint tenderness Integumentary: Patient with amputation of the big toe. Closed wound. Open wound to the lateral side of the right foot. Neuro: Diminished sensations; otherwise, no focal deficits Problem List: 1. Cellulitis of right foot/osteomyelitis of the right foot 2. DM2 PLAN Continue plan of care as mentioned below. 1. Continue with IV antibiotic 2. Continue with local wound care; postop day #1 from amputation 3. Wound care consultation/ID consultation appreciated; surgical consultation appreciated 4. Gentle hydration 5. Monitor labs 6. Strict blood sugar monitoring; HgA1c pending 7. Pain control 8. Arrange for outpt IV abx 9. GI and DVT prophylaxis Plan to arrange work-up with infusion company and then plan to discharge afterwards.
--- NOTE | 2023-07-31 23:21 | P.DS ---
Discharge Date: 08/01/23 Disposition: ROUTINE DISCHARGE Discharge Condition: GOOD Reason for Admission: Celluitis of Right foot Consultations: Surgery Infectious disease Brief History of Present Illness: 48-year-old gentleman who has a history of diabetes with diabetic neuropathy. Dre has had repeated infections of the right foot which required amputation. Patient had recurrent infections. Patient has been on IV antibiotic therapy. Patient's MRI is pending. Patient will be admitted to the hospital for further evaluation. Hospital Course: Patient had a PICC line placed and IV antibiotics were arranged. Patient is doing well and patient is stable for discharge home patient has infusion [facility] that will deliver the antibiotics. Will check labs weekly. Vital Signs/Physical Exam: Temp Pulse Resp BP Pulse Ox 98.1 F 79 16 146/79 H 98 07/31/23 20:00 07/31/23 20:00 07/31/23 20:00 07/31/23 20:00 07/31/23 20:00 General: Alert, In no apparent distress, Oriented x3 Laboratory Data at Discharge: WBC 9.40 thou/uL (4.3-10.9) 07/25/23 06:17 Hgb 12.8 g/dL (13.6-17.9) L 07/25/23 06:17 Hct 37.3 % (39.6-49.0) L 07/25/23 06:17 Plt Count 263 thou/uL (152-406) 07/25/23 06:17 PT 12.3 SECONDS (9.5-12.5) 07/24/23 12:22 INR 1.12 07/24/23 12:22 APTT 32.3 SECONDS (24.3-36.9) 07/24/23 12:22 Sodium 135 mEq/L (136-145) L 07/26/23 08:02 Potassium 3.5 mEq/L (3.5-5.1) 07/26/23 08:02 BUN 9 mg/dL (7-18) 07/26/23 08:02 Creatinine 0.65 mg/dL (0.70-1.30) L 07/26/23 08:02 Glucose 205 mg/dL (74-106) H 07/26/23 08:02 Total Bilirubin 0.5 mg/dL (0.2-1.0) 07/24/23 12:22 AST 6 U/L (15-37) L 07/24/23 12:22 ALT 15 U/L (16-61) L 07/24/23 12:22 Alkaline Phosphatase 81 U/L (45-117) 07/24/23 12:22 Triglycerides 115 mg/dL (<150) 07/25/23 06:17 Cholesterol 129 mg/dL (<200) 07/25/23 06:17 HDL Cholesterol 26 mg/dL (40-60) L 07/25/23 06:17 Cholesterol/HDL Ratio 4.96 07/25/23 06:17 Home Medications: Insulin Glargine,Hum.rec.anlog [Semglee] 20 unit SQ DAILY #2 syr 07/30/23 Metformin HCl [Glucophage*] 500 mg PO BIDWM #60 tab 07/30/23 Mupirocin Calcium [Bactroban Nasal*] 1 appl TOP BID #1 tube 07/30/23 Hydrocodone 10/APAP 325 [[place] 10/325] 1 tab PO Q6H PRN #30 tab 07/31/23 Insulin Glargine,Hum.rec.anlog [Lantus Solostar] 20 unit SQ BEDTIME #2 syr 08/01/23 Insulin Glargine,Hum.rec.anlog [Lantus] 20 unit SQ BEDTIME #2 vial 08/01/23 New Medications: Mupirocin Calcium [Bactroban Nasal*] 1 appl TOP BID #1 tube Metformin HCl [Glucophage*] 500 mg PO BIDWM #60 tab Insulin Glargine,Hum.rec.anlog [Lantus] 20 unit SQ BEDTIME #2 vial Insulin Glargine,Hum.rec.anlog [Lantus Solostar] 20 unit SQ BEDTIME #2 syr Hydrocodone 10/APAP 325 [[place] 10/325] 1 tab PO Q6H PRN #30 tab PRN Reason: Pain Insulin Glargine,Hum.rec.anlog [Semglee] 20 unit SQ DAILY #2 syr Physician Discharge Instructions: -DC IV and DC home -Follow-up with PCP in 1 to 2 weeks -Follow-up with General Surgery in 1 to 2 weeks -Please call Dr. Duran at [phone] if any questions regarding hospital stay -Please call nursing station at [phone] if any nursing or medication questions -Return to the emergency room if symptoms worsen Diet: ADA Activity: Fall precautions Followup: Amol Meza MD [ACTIVE - CAN ADMIT] - 1 Week (call to schedule for appointment ) NONE,NONE [Primary Care Provider] - 1-2 Weeks (call to schedule fo appointment ) Time spent managing pt's care (in minutes): 35
[2023-08-01 06:44] LABS: Absolute Lymphocytes (CBC) 2.6 K/uL (0.7-4.9); Hematocrit 38.8 % (39.6-49.0); Lymphocytes % 28.1 % (15.3-44.8); MCV 88.1 fL (80-100); MPV 7.9 fL (7.6-11.3); Platelets 341 thou/uL (152-406); RBC Red Blood Cell Count 4.41 M/uL (4.33-5.43)
[2023-08-01 06:46] LABS: Magnesium 1.7 mg/dL (1.6-2.4); Potassium 3.9 mEq/L (3.5-5.1)
[2023-08-01] MEDS: INSULIN -REGULAR HUMAN 50 UNIT/0.5 ML ML SQ SCH ×2 (07:30→11:30)
[2023-08-01] MEDS: METFORMIN HCL 500 MG TAB PO SCH (08:13)
[2023-08-01] MEDS: POTASSIUM CL SA 10 MEQ TAB PO SCH (08:13)
[2023-08-01] MEDS: INSULIN GLARGINE 100 UNIT/ML SQ SCH (08:13)
[2023-08-01] MEDS: VANCOMYCIN 1.75 GM in NA CHLORIDE 0.9% 500 ML IVPB SCH (10:22)
[2023-08-01 12:19] VITALS: BP 137/75; TEMP 97.9
== END 2023-08-01 16:54 | disposition home or self-care (01) | DRG 617 ==
LOC: ER 11:32 → ERHOLD 14:41 → 4TH 15:48
PROVIDERS: ADMIT Internal Medicine Sleep Medicine; ATTEND Hospitalist
PROC: 02HV33Z Insertion of Infusion Device into Superior Vena Cava, Percutaneous Approach (ICD-10-PCS; 2023-07-27)
PROC: 3E04329 Introduction of Other Anti-infective into Central Vein, Percutaneous Approach (ICD-10-PCS; 2023-07-27)
PROC: 02H633Z Insertion of Infusion Device into Right Atrium, Percutaneous Approach (ICD-10-PCS; 2023-07-27)
PROC: 0Y6P0Z0 Detachment at Right 1st Toe, Complete, Open Approach (ICD-10-PCS; principal; 2023-07-29 17:45)
PROC: 0JBQ0ZZ Excision of Right Foot Subcutaneous Tissue and Fascia, Open Approach (ICD-10-PCS; 2023-07-29 17:45)
DX: E11.69 Type 2 diabetes mellitus with other specified complication (principal); E11.52 Type 2 diabetes mellitus with diabetic peripheral angiopathy with gangrene; L03.115 Cellulitis of right lower limb; M86.9 Osteomyelitis, unspecified; E11.65 Type 2 diabetes mellitus with hyperglycemia; E11.40 Type 2 diabetes mellitus with diabetic neuropathy, unspecified; E11.621 Type 2 diabetes mellitus with foot ulcer; L97.519 Non-pressure chronic ulcer of other part of right foot with unspecified severity; B95.1 Streptococcus, group B, as the cause of diseases classified elsewhere; Z79.4 Long term (current) use of insulin; Z79.84 Long term (current) use of oral hypoglycemic drugs; Z89.431 Acquired absence of right foot; Z91.148 Patient's other noncompliance with medication regimen for other reason; Z79.899 Other long term (current) drug therapy
CPT/HCPCS: 36415; 36569; 71045; 80048; 80053; 80061; 80202; 82947; 83036; 83605; 83735; 84443; 85025; 85610; 85730; 87040; 87070; 87075; 87076; 87077; 87185; 87186; 87205; 88304; 88305; 88311; 93005; 93925; 93926; 96361; 96365; 96375; 99285; J0171; J0692; J1100; J1815; J2001; J2250; J2270; J2920; J3010; J7030; J7040; J7050

== ENCOUNTER 2023-08-11 20:16 | Emergency (ER) | payer SELFPAY ==
--- OUTSIDE RECORDS SUMMARY | 2023-08-11 20:19 | XMS REPORT | Continuity of Care Document ---
:1975 Author Organization [facility] t Address [address] [facility] [place] [address] Care Team Providers Name Role Phone Unavailable Unavailable Unavailable Problems This patient has no known problems. Allergies, Adverse Reactions, Alerts This patient has no known allergies or adverse reactions. Medications This patient has no known medications. Procedures This patient has no known procedures. Encounters Start End Encounter Admission Attending Care Care Encounter Source Date/Time Date/Time Type Type Clinicians Facility Department ID 2023-08-11 2023-08-11 Outpatient [facility] [id number] [place] 16:09:20 16:09:20 [id number] F Gee 2023-08-04 2023-08-04 Outpatient [facility] [id number] [place] 13:33:08 13:33:08 [id number] F Gee Results Test Description Test Time Test Comments Results Result Comments Source COMPREHENSIVE METABOLIC PANEL 2023-08-05 05:31:22 Test Item Value Reference Range Interpretation Comme nts GLUCOSE (test code = 2217) 225 MG/DL 70-99 H BUN (test code = 2208) 11 MG/DL 6-20 CREATININE (test code = 2214) 0.70 MG/DL 0.80-1.40 L eGFR (2020 CKD-EPI) (test code = 22319) 113 ML/MIN/1.73 >60 CALC BUN/CREAT (test code = 2235) 16 RATIO 6-28 SODIUM (test code = 2231) 134 MEQ/L 133-146 POTASSIUM (test code = 2228) 4.5 MEQ/L 3.5-5.4 CHLORIDE (test code = 2215) 98 MEQ/L 95-107 CARBON DIOXIDE (test code = 2206) 25 MEQ/L 19-31 CALCIUM (test code = 2209) 9.4 MG/DL 8.5-10.5 PROTEIN, TOTAL (test code = 2229) 6.9 G/DL 6.1-8.3 ALBUMIN (test code = 2201) 3.7 G/DL 3.5-5.2 CALC GLOBULIN (test code = 2240) 3.2 G/DL 1.9-3.7 CALC A/G RATIO (test code = 2234) 1.2 RATIO 1.0-2.6 BILIRUBIN, TOTAL (test code = 2206) 0.2 MG/DL <=1.2 ALKALINE PHOSPHATASE (test code = 2204) 80 U/L 40-118 AST (test code = 2218) 17 U/L 9-50 ALT (test code = 2219) 24 U/L 5-50 LIPID [id number] 05:31:22 Test Item Value Reference Range Interpretation Comments CHOLESTEROL (test 174 MG/DL <200 code = 2210) TRIGLYCERIDES (test 169 MG/DL <150 H code = 2232) HDL CHOLESTEROL (test 40 MG/DL >39 code = 2220) CALC LDL CHOL (test 105 MG/DL <100 H NOTE: C ALCULATED LDL code = 2237) IS BASED ON STACI-LOYA METHOD WHICHINCLUDES ADJUSTABLE TRIGLYCERIDE:VL DL CHOLESTEROL RAT IO.THIS FACTOR VARIES B Y MEASURED TRIGLY CERIDE AND NON-HDLCHOL ESTEROL CONCENTRATIONS WITH INCREASED CALCU LATED LDL SEENIN HIGH ER TRIGLYCERIDE OR LOWER NON-HDL SPECIME NS. FOR MOREINFORMATION , SEE CLIENT ANNOUNCE MENT AT [email or web address] RATIO LDL/HDL 2.63 RATIO <3.55 (test code = 2238) HEMOGLOBIN [id number] 05:17:52 Test Item Value Reference Range Interpretation Comments HEMOGLOBIN A1c (test 11.4 % 4.2-5.6 H AMERI CAN DIABETES code = 25065) ASSOCIATION IDELINES FOR HGB A1C: PREDIABETES/INC REASED RISK . . . . . . . 5 .7-6.4% DIAGNOSIS OF DI ABETES . . . . . . . . . >=6 .5% WITH CONFIRMATION OR APPROPRIATE SYMPTOMS NOTE: ASSAY MAY BE AFFECTED BY HEMOGLOBINOPATH IES (SICKLE CELL ANEMIA, S- C DISEASE, OTHERS) OR SERA FICIALLY LOWERED BY DECR EASED RED CELL SURVIVAL ( HEMOLYTIC ANEMIAS, BLOOD LOSS, ETC.). CONSIDER ALTERN ATE TESTING OR LABORATORY C ONSULTATION. CBC W/AUTO DIFF WITH [id number] 03:40:10 Test Item Value Reference Range Interpretation Comments WBC (test code = 9.8 K/UL 3.5-11.0 1001) RBC (test code = 4.49 M/UL 4.50-6.10 L 1002) HEMOGLOBIN (test 13.3 G/DL 13.5-17.0 L code = 1003) HEMATOCRIT (test 40.0 % 40.0-51.0 code = 1004) MCV (test code = 89.1 fL 80.0-99.0 1005) MCH (test code = 29.6 PG 25.0-33.0 1006) MCHC (test code = 33.3 G/DL 31.0-36.0 1007) RDW (test code = 12.2 % 11.5-15.0 1038) NEUTROPHILS (test 74.0 % code = 1008) LYMPHOCYTES (test 17.9 % code = 1010) MONOCYTES (test code 6.1 % = 1011) EOSINOPHILS (test 1.3 % code = 1012) BASOPHILS (test code 0.3 % = 1013) IMMATURE 0.4 % GRANULOCYTES (test code = 1036) NUCLEATED RBCS (test 0.0 /100 See_Comment [Autom ated message] code = 1065) WBC'S The system [employer] generated this result transmitted ref erence range: 0.0. The reference range was not used to int erpret this result as normal/abnormal . PLATELET COUNT (test 356 K/UL 130-400 code = 1015) ABSOLUTE NEUTROPHILS 7.25 K/UL 1.50-7.50 (test code = 1066) ABSOLUTE LYMPHOCYTES 1.75 K/UL 1.00-4.00 (test code = 1067) ABSOLUTE MONOCYTES 0.60 K/UL 0.20-1.00 (test code = 1068) ABSOLUTE EOSINOPHILS 0.13 K/UL 0.00-0.50 (test code = 1040) ABSOLUTE BASOPHILS 0.03 K/UL 0.00-0.20 (test code = 1069) ABS IMMATURE 0.04 K/UL 0.00-0.10 GRANULOCYTES (test code = 1020) ABS NUCLEATED RBCS 0.00 K/UL 0.00-0.11 UNLESS O THERWISE (test code = 53606) INDICATE D, ALL TESTING PERFORM ED AT [facility]ICAL [facility] [place] [address] [place] [address] SARBJIT FISHER DIRECTOR: Angella SMITH FRANCIA NUMBER [id number] CAP ACCREDITATION N O. [id number]
--- NOTE | 2023-08-11 20:54 | ER ---
Nurse's Notes [facility] Name: Nikita Barros Age: 48 yrs Sex: Male : 1975 Arrival Date: 08/11/2023 Time: 20:16 Bed 11 Private MD: Diagnosis: Left arm PICC line problem, vascular access management, encounter for dressing change for the left arm PICC line Presentation: 08/11 20:26 Chief complaint: Patient states: has a left upper PICC line, which he had the dressing ap3 changed today at the [facility] office and he is now having an issue flushing. Coronavirus screen: At this time, the client does not indicate any symptoms associated with coronavirus-19. Ebola Screen: No symptoms or risks identified at this time. Initial Sepsis Screen:. Risk Assessment: Do you want to hurt yourself or someone else? Patient reports no desire to harm self or others. Onset of symptoms was August 11, 2023. 20:26 Method Of Arrival: Ambulatory ap3 20:27 Initial Sepsis Screen: Does the patient meet any 2 criteria? No. Patient's initial ap3 sepsis screen is negative. Does the patient have a suspected source of infection? Yes: Other: PICC line present in the left upper arm. 20:27 Acuity: [place] 4 ap3 Triage Assessment: 20:28 General: Appears in no apparent distress. Behavior is calm, cooperative, appropriate ap3 for age. Pain: Denies pain. Neuro: Level of Consciousness is awake, alert, obeys commands, Oriented to person, place, time, situation. Cardiovascular: Patient's skin is warm and dry. Respiratory: Airway is patent Respiratory effort is even, unlabored, Respiratory pattern is regular, symmetrical. Derm: PICC line in place in the patients left upper arm. Historical: - Allergies: 20:27 No Known Allergies; ap3 - PMHx: 20:27 diabetes mellitus; ap3 - Immunization history:: Client reports having NOT received the Covid vaccine. - Social history:: Smoking status: Patient denies any tobacco usage or history of. - Family history:: not pertinent. Screenin:[facility] ED Fall Risk Assessment (Adult) History of falling in the last 3 months, ap3 including since admission No falls in past 3 months (0 pts). Abuse screen: Denies threats or abuse. Nutritional screening: No deficits noted. Tuberculosis screening: No symptoms or risk factors identified. Assessment: 20:58 General: DC HOME AMBULATORY. bp Vital Signs: 20:27 BP 152 / 86; Pulse 107; Resp 18; Temp 98.6; Pulse Ox 100% ; Weight 81.19 kg; ap3 ED Course: 20:20 Patient arrived in ED. jj6 20:27 Satish Alfaro MD is Attending Physician. sp4 20:28 Triage completed. ap3 20:29 Arm band placed on right wrist. ap3 20:29 Patient has correct armband on for positive identification. ap3 20:58 No provider procedures requiring assistance completed. Patient did not have IV access bp during this emergency room visit. Administered Medications: No medications were administered Medication: 20:29 VIS not applicable for this client. ap3 Outcome: 20:54 Discharge ordered by . sp4 20:58 Discharged to home ambulatory, bp 20:58 Condition: stable 20:58 Discharge instructions given to patient, Instructed on discharge instructions, follow up and referral plans. Demonstrated understanding of instructions, follow-up care, 20:59 Patient left the ED. bp Signatures: Sgaar Villeda, RN RN bp Maricarmen Galeana RN RN ap3 Elizabeth Whitmore jj6 Satish Alfaro MD MD sp4
--- NOTE | 2023-08-11 20:54 | EDPHYS ---
Physician Documentation [facility] Name: Nikita Barros Age: 48 yrs Sex: Male : 1975 Arrival Date: 08/11/2023 Time: 20:16 Bed 11 Private MD: ED Physician Satish Alfaro HPI: 08/11 20:27 This 48 yrs old Male presents to ER via Ambulatory with complaints of IV sp4 PROBLEM. 20:48 28-year-old male presents with complaint of a nonfunctional PICC line. Patient states sp4 left arm PICC line was placed today by the nurse in the [facility]. Patient reports that line not infusing medication properly and he feels discomfort. PICC line was placed for management of the right foot infection/diabetic foot complications and patient states he has been managed with vancomycin twice a day via PICC line. . Historical: - Allergies: 20:27 No Known Allergies; ap3 - PMHx: 20:27 diabetes mellitus; ap3 - Immunization history:: Client reports having NOT received the Covid vaccine. - Social history:: Smoking status: Patient denies any tobacco usage or history of. - Family history:: not pertinent. ROS: 20:48 Constitutional: Negative for fever, chills, and weight loss, Cardiovascular: Negative sp4 for chest pain, palpitations, and edema, positive nonfunctional left arm PICC line 20:48 All other systems are negative, Exam: 20:48 Constitutional: This is a well developed, well nourished patient who is awake, alert, sp4 and in no acute distress. Head/Face: Normocephalic, atraumatic. Eyes: Pupils equal round and reactive to light, extra-ocular motions intact. Lids and lashes normal. Conjunctiva and sclera are not injected. Cornea within normal limits. Periorbital areas with no swelling, redness, or edema. ENT: Nares patent. No nasal discharge, no septal abnormalities noted. Tympanic membranes are normal and external auditory canals are clear. Oropharynx with no redness, swelling, or masses, exudates, or evidence of obstruction, uvula midline. Mucous membranes moist. Neck: Trachea midline, no thyromegaly or masses palpated, and no cervical lymphadenopathy. Supple, full range of motion without nuchal rigidity, or vertebral point tenderness. Chest/axilla: Normal chest wall appearance and motion. Nontender with no deformity. No lesions are appreciated. Cardiovascular: Regular rate and rhythm with a normal S1 and S2. No gallops, murmurs, or rubs. Normal PMI, no JVD. No pulse deficits. Left upper arm PICC line double port, on initial exam the line does draw back blood and flushes seems to be flushing properly. Respiratory: Lungs have equal breath sounds bilaterally, clear to auscultation and percussion. No rales, rhonchi or wheezes noted. No increased work of breathing, no retractions or nasal flaring. Abdomen/GI: Soft, non-tender, with normal bowel sounds. No distension or tympany. No guarding or rebound. No evidence of tenderness throughout. Back: No spinal tenderness. No costovertebral tenderness. Skin: Warm, dry with normal turgor. Normal color with no rashes, no lesions, and no evidence of cellulitis. MS/ Extremity: Pulses equal, no cyanosis. Neurovascular intact. Full, normal range of motion. Right foot with transmetatarsal amputation -dressing in place Neuro: Awake and alert, GCS 15, oriented to person, place, time, and situation. Cranial nerves II-XII grossly intact. Motor strength 5/5 in all extremities. Sensory grossly intact. Psych: Awake, alert, with orientation to person, place and time. Behavior, mood, and affect are within normal limits Vital Signs: 20:27 BP 152 / 86; Pulse 107; Resp 18; Temp 98.6; Pulse Ox 100% ; Weight 81.19 kg; ap3 Procedures: 20:48 Performed Dressing change and PICC line flushing. Left upper arm PICC line was flushed sp4 with saline after blood was collected from both ports. Dressing was taken off, the site was sanitized with chlorhexidine. Dressing was exchanged and again the line seems to be drawing back blood properly out of both ports and it flushes properly. At this time the line does not need to be exchanged patient is stable for discharge home. . MDM: 20:48 Patient medically screened. sp4 20:48 Differential Diagnosis altered mental status, sepsis, flu, Vascular report compromise. sp4 Data reviewed: vital signs, nurses notes, old medical records. ED course: Patient is stable for discharge home. Advised to return to the emergency room in case there are any more problems with the PICC line. Administered Medications: No medications were administered Disposition Summary: 08/11/23 20:54 Discharge Ordered Notes: Location: Home sp4 Problem: new sp4 Symptoms: have improved sp4 Condition: Stable sp4 Diagnosis - Left arm PICC line problem, vascular access management, encounter for dressing sp4 change for the left arm PICC line Followup: sp4 - With: Private Physician - When: 7 - 10 days - Reason: Recheck today's complaints Discharge Instructions: - Discharge Summary Sheet sp4 - PICC Home Care Guide sp4 Forms: - Patient Portal Instructions sp4 Signatures: Maricarmen Galeana RN RN ap3 Satish Alfaro MD MD sp4
[2023-08-11 22:32] VITALS: BP 152/86; TEMP 98.6; O2SAT 100
== END 2023-08-11 20:59 | disposition home or self-care (01) ==
LOC: ER 20:16
DX: T82.898A Other specified complication of vascular prosthetic devices, implants and grafts, initial encounter (principal)
CPT/HCPCS: 99282

== ENCOUNTER 2023-08-27 08:58 | Emergency (ER) | payer SELFPAY ==
--- OUTSIDE RECORDS SUMMARY | 2023-08-27 09:01 | XMS REPORT | Continuity of Care Document ---
:1975 Author Organization [facility] t Address [address] [facility] [address] [place] [address] Care Team Providers Name Role Phone Unavailable Unavailable Unavailable Problems This patient has no known problems. Allergies, Adverse Reactions, Alerts This patient has no known allergies or adverse reactions. Medications This patient has no known medications. Procedures This patient has no known procedures. Encounters Start End Encounter Admission Attending Care Care Encounter Source Date/Time Date/Time Type Type Clinicians Facility Department ID 2023-08-19 2023-08-19 Outpatient [facility] [place] 09:54:57 09:54:57 [id number] F Gee 2023-08-18 2023-08-18 Outpatient [facility] [place] 09:02:12 09:02:12 [id number] F Gee 2023-08-16 2023-08-16 Outpatient [facility] [place] 16:14:07 16:14:07 [id number] F Gee 2023-08-11 2023-08-11 Outpatient [facility] [place] 16:09:20 16:09:20 [id number] F [place] 2023-08-04 2023-08-04 Outpatient [facility] [id number] [place] 13:33:08 13:33:08 [id number] [facility] Results Test Description Test Time Test Comments Results Result Comments Source AEROBIC AND ANAEROBIC CULTURE PROFILE 2023-08-22 15:54:17 Test Item Value Reference Range Interpretation Comme nts CULTURE, ROUTINE SPECIMEN NUMBER: Yesenia SAIRA Montero, ROUTINE SPECIMEN NUMBER: (test code = 80434) [id number] SPECIMEN COMMENT: R GREAT TOE SOURCE: TOE REP ORT STATUS: FINAL DIRECT GRAM STAIN: ABU NDANT WBCs OBSERVED ABUNDANT GRAM N EGATIVE BACILLI ISOLATE NUMBER 1: ORGAN ISM: 08/20/2023 ABUNDANT GRAM NEGATIVE B ACILLI IDENTIFICATION: 08/21/2023 ESCH ERICHIA COLI CONFIRMED POSITIVE EXTEND ED-SPECTRUM BETA-LACTAMASE (ESBL). THESE O RGANISMS ARE UNIFORMLY RESISTANT TO AL L PENICILLINS, CEPHALOSPORINS AND AZTREONAM. E. COLI ESBL ------AMOXICILLIN/CA INTERMED 16/8AM PICILLIN RESISTANT >16CEFAZOLIN R ESISTANT >16CEFTRIAXONE RESISTANT >32CI PROFLOXACIN RESISTANT >2ERTAPENEM SEN SITIVE <=0.5LEVOFLOXACIN RESISTANT >4MER OPENEM SENSITIVE <=1PIP/TAZOBAC SENSITIVE <=16TETRACYCLINE RESISTANT >8TOB RAMYCIN RESISTANT >8TRIMETH/SULFA SENSITIVE <=2/38 NOTE: NUMBERS DISPLAY ED REPRESENT MINIMUM INHIBITORY CONC ENTRATION (JONNATHAN) WHICH IS EXPRESSED IN MC G/ML. CULTURE, ANAEROBIC SPECIMEN NUMBER: A CULT URE, ANAEROBIC SPECIMEN NUMBER: (test code = 25776) [id number] SPECIMEN COMMENT: R GREAT TOE SOURCE: TOE REP ORT STATUS: FINAL ISOLATE NUMBER 1: ORGAN ISM: 08/22/2023 MODERATE ANAEROBIC ORGAN ISM RECOVERED IDENTIFICATION: PREVOTELLA BIVIA ADDITIONAL OBSE RVATIONS: SUSCEPTIBILITIES NOT ROUTINELY P ERFORMED AND/OR [facility]) HAS ESTABLISHED NO CRITERIA FOR SUSCEPTIBILITIE S [id number] 23:55:09 Test Item Value Reference Range Interpretation Comments VANCOMYCIN (test code 4.9 UG/ML SEE BELOW L Vanco mycin = 3038) Recommended Ran ges Trough: 10.0-20 .0 UG/ML Peak: 25. 0-40.0 UG/ML Note: For complicated inf ections (bacteremia, endocarditis, meningitis, etc .), appropriate tro ugh range is 15.0-2 0.0 ug/mL. VANCOMYCIN, [id number] 23:55:09 Test Item Value Reference Range Interpretation Comments VANCOMYCIN, PEAK (test code = 3024) 4.8 UG/ML 25.0-40.0 L VANCOMYCIN, [id number] 23:55:09 Test Item Value Reference Range Interpretation Comments VANCOMYCIN, TROUGH 4.9 UG/ML 10.0-20.0 L Note: Fo r complicated (test code = 3023) infection s (bacteremia, endocarditis,me ningitis, etc.), appropri ate range is 15.0-20.0 ug /mL. UNLESS OTHERWIS E INDICATED, ALL TESTING PERFORMED AT [facility] [address] [place] [address] [facility] DIRECTOR: Angella SMITH FRANCIA NUMBER [id number] CAP ACCREDITATION N O. [id number] COMPREHENSIVE METABOLIC [id number] 05:05:25 Test Item Value Reference Range Interpretation Comments GLUCOSE (test code = 2217) 102 MG/DL 70-99 H BUN (test code = 220) 11 MG/DL 6-20 CREATININE (test code = 221) 0.60 MG/DL 0.80-1.40 L eGFR (2020 CKD-EPI) (test 118 ML/MIN/1.73 >60 code = 85112) CALC BUN/CREAT (test code = 18 RATIO 6-28 2234) SODIUM (test code = 223) 140 MEQ/L 133-146 POTASSIUM (test code = 2228) 4.5 MEQ/L 3.5-5.4 CHLORIDE (test code = 221) 104 MEQ/L 95-107 CARBON DIOXIDE (test code = 24 MEQ/L -31 2205) CALCIUM (test code = 2209) 9.6 MG/DL 8.5-10.5 PROTEIN, TOTAL (test code = 7.1 G/DL 6.1-8.3 2228) ALBUMIN (test code = 220) 3.8 G/DL 3.5-5.2 CALC GLOBULIN (test code = 3.3 G/DL 1.9-3.7 2239) CALC A/G RATIO (test code = 1.2 RATIO 1.0-2.6 2233) BILIRUBIN, TOTAL (test code = 0.4 MG/DL <=1.2 2206) ALKALINE PHOSPHATASE (test 71 U/L 40-118 code = 2204) AST (test code = 2218) 19 U/L 9-50 ALT (test code = 2219) 20 U/L 5-50 CBC W/AUTO DIFF WITH [id number] 01:43:15 Test Item Value Reference Range Interpretation Comments WBC (test code = 5.6 K/UL 3.5-11.0 1001) RBC (test code = 4.67 M/UL 4.50-6.10 1002) HEMOGLOBIN (test code 13.4 G/DL 13.5-17.0 L = 1003) HEMATOCRIT (test code 40.6 % 40.0-51.0 = 1004) MCV (test code = 86.9 fL 80.0-99.0 1005) MCH (test code = 28.7 PG 25.0-33.0 1006) MCHC (test code = 33.0 G/DL 31.0-36.0 1007) RDW (test code = 12.7 % 11.5-15.0 1038) NEUTROPHILS (test 59.1 % code = 1008) LYMPHOCYTES (test 27.1 % code = 1010) MONOCYTES (test code 8.8 % = 1011) EOSINOPHILS (test 4.1 % code = 1012) BASOPHILS (test code 0.5 % = 1013) IMMATURE GRANULOCYTES 0.4 % (test code = 1036) NUCLEATED RBCS (test 0.0 /100 WBC'S See_Comment [Aut omated code = 1065) message] The sy stem which generated this result transmitted reference range : 0.0. The refere nce range was not u sed to interpret th is result as normal/abnormal . PLATELET COUNT (test 234 K/UL 130-400 code = 1015) ABSOLUTE NEUTROPHILS 3.31 K/UL 1.50-7.50 (test code = 1066) ABSOLUTE LYMPHOCYTES 1.52 K/UL 1.00-4.00 (test code = 1067) ABSOLUTE MONOCYTES 0.49 K/UL 0.20-1.00 (test code = 1068) ABSOLUTE EOSINOPHILS 0.23 K/UL 0.00-0.50 (test code = 1040) ABSOLUTE BASOPHILS 0.03 K/UL 0.00-0.20 (test code = 1069) ABS IMMATURE 0.02 K/UL 0.00-0.10 GRANULOCYTES (test code = 1020) ABS NUCLEATED RBCS 0.00 K/UL 0.00-0.11 (test code = 49056) VANCOMYCIN, [id number] 07:20:40 Test Item Value Reference Range Interpretation Comments VANCOMYCIN, TROUGH 27.1 UG/ML 10.0-20.0 H Note: Fo r complicated (test code = 3023) infection s (bacteremia, endocarditis,me ningitis, etc.), appropri ate range is 15.0-20.0 ug /mL. UNLESS OTHERWIS E INDICATED, ALL TESTING PERFORMED AT [facility] [address] [place] [address] [facility] DIRECTOR: Angella SMITH FRANCIA NUMBER [id number] CAP ACCREDITATION N O. [id number] COMPREHENSIVE METABOLIC [id number] 05:31:22 Test Item Value Reference Range Interpretation Comments GLUCOSE (test code = 221) 225 MG/DL 70-99 H BUN (test code = 220) 11 MG/DL 6-20 CREATININE (test code = 221) 0.70 MG/DL 0.80-1.40 L eGFR (2020 CKD-EPI) (test 113 ML/MIN/1.73 >60 code = 70156) CALC BUN/CREAT (test code = 16 RATIO 6-28 2234) SODIUM (test code = 2230) 134 MEQ/L 133-146 POTASSIUM (test code = 2228) 4.5 MEQ/L 3.5-5.4 CHLORIDE (test code = 2215) 98 MEQ/L 95-107 CARBON DIOXIDE (test code = 25 MEQ/L 2205) CALCIUM (test code = 2209) 9.4 MG/DL 8.5-10.5 PROTEIN, TOTAL (test code = 6.9 G/DL 6.1-8.3 2228) ALBUMIN (test code = 220) 3.7 G/DL 3.5-5.2 CALC GLOBULIN (test code = 3.2 G/DL 1.9-3.7 2239) CALC A/G RATIO (test code = 1.2 RATIO 1.0-2.6 2233) BILIRUBIN, TOTAL (test code = 0.2 MG/DL <=1.2 2206) ALKALINE PHOSPHATASE (test 80 U/L 40-118 code = 2204) AST (test code = 2218) 17 U/L 9-50 ALT (test code = 2219) 24 U/L 5-50 LIPID [id number] 05:31:22 Test Item Value Reference Range Interpretation [...] MOREINFORMATION , SEE CLIENT ANNOUNCE MENT AT [email or web address] [email or web address] LDL/HDL 2.63 RATIO <3.55 (test code = 2238) HEMOGLOBIN [id number] 05:17:52 Test Item Value Reference Range Interpretation Comments HEMOGLOBIN A1c (test 11.4 % 4.2-5.6 H AMERIC AN DIABETES code = 17886) ASSOCIATION IDELINES FOR HGB A1C: PREDIABETES/INC REASED [...] LABORATORY C ONSULTATION. CBC W/AUTO DIFF WITH [id number] 03:40:10 Test Item Value Reference Range Interpretation [...] message] code = 1065) WBC'S The system [employer] generated this result transmitted ref erence range: [...] 0.00-0.11 UNLESS O THERWISE (test code = 40908) INDICATE D, ALL TESTING PERFORM ED AT [facility]ICAL [facility]. [address] [place], [place] [address] [place] [address] DIRECTOR: Angella SMITH FRANCIA NUMBER [id number] CAP ACCREDITATION N O. [id number]
--- NOTE | 2023-08-27 09:24 | ER ---
Nurse's Notes [facility] Name: Nikita Barros Age: 48 yrs Sex: Male : 1975 Arrival Date: 08/27/2023 Time: 08:58 Bed 4 Private MD: Diagnosis: Encounter for change or removal of nonsurgical wound dressing Presentation: 08/27 09:09 Chief complaint: Patient states: LUE PICC line needs a dressing change. Coronavirus ll1 screen: Vaccine status: Patient reports receiving the 2nd dose of the covid vaccine. Client denies travel out of the [place] in the last 14 days. At this time, the client does not indicate any symptoms associated with coronavirus-19. Ebola Screen: Patient denies travel to an Ebola-affected area in the 21 days before illness onset. Initial Sepsis Screen: Does the patient meet any 2 criteria? No. Patient's initial sepsis screen is negative. Does the patient have a suspected source of infection? No. Patient's initial sepsis screen is negative. Risk Assessment: Do you want to hurt yourself or someone else? Patient reports no desire to harm self or others. Onset of symptoms was August 27, 2023. 09:09 Method Of Arrival: Ambulatory ll1 09:09 Acuity: [place] 5 ll1 Triage Assessment: 09:10 General: Appears in no apparent distress. Behavior is calm, cooperative, appropriate ll1 for age, Needs PICC line dressing change to LUE. Pain: Denies pain. Neuro: No deficits noted. Cardiovascular: No deficits noted. Respiratory: No deficits noted. Historical: - Allergies: 09:09 No Known Allergies; ll1 - PMHx: 09:09 diabetes mellitus; ll1 - Immunization history:: Adult Immunizations up to date. - Social history:: Smoking status: Patient denies any tobacco usage or history of. Screenin:24 [facility] ED Fall Risk Assessment (Adult) History of falling in the last 3 months, ld1 including since admission No falls in past 3 months (0 pts). Abuse screen: Denies threats or abuse. Denies injuries from another. Nutritional screening: No deficits noted. Tuberculosis screening: No symptoms or risk factors identified. Assessment: 09:24 Reassessment: See triage assessment. ld1 09:25 Reassessment: Pt states "I just need my PICC line dressing changed.". ld1 09:39 Reassessment: Removed old dressing - new sterile dressing applied to left upper arm. ld1 Vital Signs: 09:09 BP 175 / 97; Pulse 83; Resp 16; Temp 97.5; Pulse Ox 100% ; Weight 81.65 kg; Height 5 ll1 ft. 2 in. ; Pain 0/10; 09:24 BP 175 / 97; Pulse 86; Resp 18; Pulse Ox 100% on R/A; ld1 09:09 Body Mass Index 32.92 (81.65 kg, 157.48 cm) ll1 09:09 Pain Scale: Adult ll1 ED Course: 09:01 Patient arrived in ED. ts1 09:07 Los Kee MD is Attending Physician. kdr 09:09 Arm band placed on Patient placed in an exam room, on a stretcher. ll1 09:10 Triage completed. ll1 09:24 Carie Bonilla, RN is Primary Nurse. ld1 09:24 Patient has correct armband on for positive identification. Placed in gown. Bed in low ld1 position. Call light in reach. Side rails up X2. monitoring manager on. Pulse ox on. NIBP on. Door closed. Noise minimized. Warm blanket given. 09:24 No provider procedures requiring assistance completed. Patient did not have IV access ld1 during this emergency room visit. Administered Medications: No medications were administered Medication: 09:24 VIS not applicable for this client. ld1 Outcome: 09:23 Discharge ordered by . kdr 09:40 Discharged to home ambulatory, ld1 09:40 Condition: stable 09:40 Discharge instructions given to patient, Instructed on discharge instructions, follow up and referral plans. Demonstrated understanding of instructions, follow-up care, 09:40 Patient left the ED. ld1 Signatures: Los Kee MD MD kdr Lewis, Lynsay, RN RN ll1 Carie Bonilla RN RN ld1 Lesli Schwartz PAS PAS ts1
--- NOTE | 2023-08-27 09:24 | EDPHYS ---
Physician Documentation [facility] Name: Nikita Barros Age: 48 yrs Sex: Male : 1975 Arrival Date: 08/27/2023 Time: 08:58 Bed 4 Private MD: ED Physician Los Kee HPI: 08/27 09:24 This 48 yrs old Male presents to ER via Ambulatory with complaints of Picc kdr line problem-Dressing change. 09:24 Patient has no immediate emergent need. The patient is here only for a dressing change kdr on his PICC line. Patient is otherwise without complaint or issue.. Onset: The symptoms/episode began/occurred at an unknown time. Severity of symptoms: At their worst the symptoms were mild in the emergency department the symptoms are unchanged. The patient has not experienced similar symptoms in the past. Historical: - Allergies: 09:09 No Known Allergies; ll1 - PMHx: 09:09 diabetes mellitus; ll1 - Immunization history:: Adult Immunizations up to date. - Social history:: Smoking status: Patient denies any tobacco usage or history of. ROS: 09:24 Constitutional: Negative for fever, chills, and weight loss, kdr 09:24 MS/extremity: Positive for Patient has a PICC line inserted in his left upper arm. Patient has no sign or symptom of infection at the site. Patient is otherwise stable, Exam: 09:24 Constitutional: This is a well developed, well nourished patient who is awake, alert, kdr and in no acute distress. 09:24 Musculoskeletal/extremity: Extremities: noted in the left bicep and left antecubital area: Vital Signs: 09:09 BP 175 / 97; Pulse 83; Resp 16; Temp 97.5; Pulse Ox 100% ; Weight 81.65 kg; Height 5 ll1 ft. 2 in. ; Pain 0/10; 09:24 BP 175 / 97; Pulse 86; Resp 18; Pulse Ox 100% on R/A; ld1 09:09 Body Mass Index 32.92 (81.65 kg, 157.48 cm) ll1 09:09 Pain Scale: Adult ll1 MDM: 09:23 Patient medically screened. kdr 09:24 Data reviewed: vital signs, nurses notes. kdr Administered Medications: No medications were administered Disposition Summary: 08/27/23 09:23 Discharge Ordered Notes: Location: Home kdr Problem: an acute exacerbation kdr Symptoms: are resolved kdr Condition: Stable kdr Diagnosis - Encounter for change or removal of nonsurgical wound dressing kdr Followup: kdr - With: Private Physician - When: 2 - 3 days - Reason: If symptoms return, Further diagnostic work-up, Recheck today's complaints, Continuance of care, Re-evaluation by your physician Discharge Instructions: - Discharge Summary Sheet kdr - How to Change Your Wound Dressing kdr - PICC Home Care Guide kdr Forms: - Medication Reconciliation Form kdr - Thank You Letter kdr - Patient Portal Instructions kdr - Leadership Thank You Letter kdr Signatures: Los Kee MD MD kdr Jacklyn Montes De Oca RN RN ll1
[2023-08-27 09:45] VITALS: BP 175/97; TEMP 97.5; O2SAT 100
== END 2023-08-27 09:40 | disposition home or self-care (01) ==
LOC: ER 08:58
DX: Z48.00 Encounter for change or removal of nonsurgical wound dressing (principal)
CPT/HCPCS: 99284

== ENCOUNTER 2023-08-28 16:24 | Emergency (ER) | payer SELFPAY ==
--- OUTSIDE RECORDS SUMMARY | 2023-08-28 16:36 | XMS REPORT | Continuity of Care Document ---
:1975 Author Organization [facility] t Address [address] [facility] [address] [place] [address] Care Team Providers Name Role Phone Unavailable Unavailable Unavailable Problems This patient has no known problems. Allergies, Adverse Reactions, Alerts This patient has no known allergies or adverse reactions. Medications This patient has no known medications. Procedures This patient has no known procedures. Encounters Start End Encounter Admission Attending Care Care Encounter Source Date/Time Date/Time Type Type Clinicians Facility Department ID 2023-08-27 2023-08-27 Outpatient [facility] Angelo 12:11:44 12:11:44 [id number] F Gee 2023-08-19 2023-08-19 Outpatient [facility] Angelo 09:54:57 09:54:57 [id number] F Gee 2023-08-18 2023-08-18 Outpatient [facility] Angelo 09:02:12 09:02:12 [id number] F Gee 2023-08-16 2023-08-16 Outpatient [facility] Angelo 16:14:07 16:14:07 [id number] F Gee 2023-08-11 2023-08-11 Outpatient [facility] Angelo 16:09:20 16:09:20 [id number] F Gee 2023-08-04 2023-08-04 Outpatient [facility] [id number] Angelo 13:33:08 13:33:08 [id number] Terry Gee Results Test Description Test Time Test Comments Results Result Comments Source AEROBIC AND ANAEROBIC CULTURE PROFILE 2023-08-22 15:54:17 Test Item Value Reference Range Interpretation Comme nts CULTURE, ROUTINE SPECIMEN NUMBER: Yesenia CHÁVEZ E, ROUTINE SPECIMEN NUMBER: (test code = 27419) [id number] SPECIMEN COMMENT: R GREAT TOE SOURCE: [...] URE, ANAEROBIC SPECIMEN NUMBER: (test code = 78484) [id number] SPECIMEN COMMENT: R GREAT TOE SOURCE: TOE REP ORT STATUS: FINAL ISOLATE NUMBER 1: ORGAN ISM: 08/22/2023 MODERATE ANAEROBIC ORGAN ISM RECOVERED IDENTIFICATION: PREVOTELLA BIVIA ADDITIONAL OBSE RVATIONS: SUSCEPTIBILITIES NOT ROUTINELY P ERFORMED AND/OR [facility] HAS ESTABLISHED NO CRITERIA FOR SUSCEPTIBILITIE S [id number] 23:55:09 Test Item Value Reference Range Interpretation Comments VANCOMYCIN (test code 4.9 UG/ML SEE BELOW L Vanco mycin = 3038) Recommended Ran ges Trough: 10.0-20 .0 UG/ML Peak: 25. 0-40.0 UG/ML Note: For complicated inf ections (bacteremia, endocarditis, meningitis, etc .), appropriate tro ugh range is 15.0-2 0.0 ug/mL. VANCOMYCIN, [id number] 23:55:09 Test Item Value Reference Range Interpretation Comments VANCOMYCIN, PEAK (test code = 3024) 4.8 UG/ML 25.0-40.0 L VANCOMYCIN, [id number] 23:55:09 Test Item Value Reference Range Interpretation Comments VANCOMYCIN, TROUGH 4.9 UG/ML 10.0-20.0 L Note: Fo r complicated (test code = 3023) infection s (bacteremia, endocarditis,me ningitis, etc.), appropri ate range is 15.0-20.0 ug /mL. UNLESS OTHERWIS E INDICATED, ALL TESTING PERFORMED AT [facility] [employer] [address] [place], [place] [id number] [place] [address] DIRECTOR: Angella SMITH FRANCIA NUMBER [id number] CAP ACCREDITATION N O. [id number] COMPREHENSIVE METABOLIC [id number] 05:05:25 Test Item Value Reference Range Interpretation Comments GLUCOSE (test code = 7) 102 MG/DL 70-99 H BUN (test code = 2207) 11 MG/DL 6-20 CREATININE (test code = 221) 0.60 MG/DL 0.80-1.40 L eGFR (2020 CKD-EPI) (test 118 ML/MIN/1.73 >60 code = 28010) CALC BUN/CREAT (test code = 18 RATIO 6-28 2234) SODIUM (test code = 223) 140 MEQ/L 133-146 POTASSIUM (test code = 2228) 4.5 MEQ/L 3.5-5.4 CHLORIDE (test code = 2215) 104 MEQ/L 95-107 CARBON DIOXIDE (test code = 24 MEQ/L 19-31 2205) CALCIUM (test code = 220) 9.6 MG/DL 8.5-10.5 PROTEIN, TOTAL (test code [...] 20 U/L 5-50 CBC W/AUTO DIFF WITH [id number] 01:43:15 Test Item Value Reference Range Interpretation [...] RBCS 0.00 K/UL 0.00-0.11 (test code = 07984) VANCOMYCIN, [id number] 07:20:40 Test Item Value Reference Range Interpretation Comments VANCOMYCIN, TROUGH 27.1 UG/ML 10.0-20.0 H Note: Fo r complicated (test code = 3023) infection s (bacteremia, endocarditis,me ningitis, etc.), appropri ate range is 15.0-20.0 ug /mL. UNLESS OTHERWIS E INDICATED, ALL TESTING PERFORMED AT [facility] [employer] [address] [place], [place] [id number] [place] [address] ROLANDA DIRECTOR: Angella SMITH FRANCIA NUMBER [id number] CAP ACCREDITATION N O. [id number] COMPREHENSIVE METABOLIC [id number] 05:31:22 Test Item Value Reference Range Interpretation Comments GLUCOSE (test code = 7) 225 MG/DL 70-99 H BUN (test code = 2207) 11 MG/DL 6-20 CREATININE (test code = 2214) 0.70 MG/DL 0.80-1.40 L eGFR (2020 CKD-EPI) (test 113 ML/MIN/1.73 >60 code = 59454) CALC BUN/CREAT (test code = 16 RATIO 6-28 2234) SODIUM (test code = 223) 134 MEQ/L 133-146 POTASSIUM (test code = 2228) 4.5 MEQ/L 3.5-5.4 CHLORIDE (test code = 2215) 98 MEQ/L 95-107 CARBON DIOXIDE (test code = 25 MEQ/L -31 2205) CALCIUM (test code = 2209) 9.4 MG/DL 8.5-10.5 PROTEIN, TOTAL (test code = 6.9 G/DL 6.1-8.3 2228) ALBUMIN (test code = 2201) 3.7 G/DL 3.5-5.2 CALC GLOBULIN (test code = 3.2 G/DL 1.9-3.7 2239) CALC A/G RATIO (test code = 1.2 RATIO 1.0-2.6 2233) BILIRUBIN, TOTAL (test code = 0.2 MG/DL <=1.2 2206) ALKALINE PHOSPHATASE (test 80 U/L 40-118 code = 2204) AST (test code = 2218) 17 U/L 9-50 ALT (test code = 2219) 24 U/L 5-50 LIPID [id number] 05:31:22 Test Item Value Reference Range Interpretation [...] MOREINFORMATION , SEE CLIENT ANNOUNCE MENT AT [email or web address] [email or web address] RATIO LDL/HDL 2.63 RATIO <3.55 (test code = 2238) HEMOGLOBIN [id number] 05:17:52 Test Item Value Reference Range Interpretation Comments HEMOGLOBIN A1c (test 11.4 % 4.2-5.6 H [employer] AN DIABETES code = 65213) ASSOCIATION IDELIN[employer] FOR HGB A1C: PREDIABETES/INC REASED [...] LABORATORY C ONSULTATION. CBC W/AUTO DIFF WITH [id number] 03:40:10 Test Item Value Reference Range Interpretation [...] message] code = 1065) WBC'S The system [employer] generated this result transmitted ref erence range: [...] 0.00-0.11 UNLESS O THERWISE (test code = 67105) INDICATE D, ALL TESTING PERFORM ED AT [facility] [employer] [place] [address] [place] [address] [facility] ROLANDA DIRECTOR: Angella SMITH FRANCIA NUMBER [id number] CAP ACCREDITATION N O. [id number]
--- NOTE | 2023-08-28 17:08 | ER ---
Nurse's Notes [facility] Name: Nikita Barros Age: 48 yrs Sex: Male : 1975 Arrival Date: 08/28/2023 Time: 16:24 Bed 9 Private MD: Diagnosis: Encounter for change or removal of nonsurgical wound dressing-PICC line dressing Presentation: 08/28 16:58 Coronavirus screen: Client denies travel out of the [place] in the last 14 days. At this ll1 time, the client does not indicate any symptoms associated with coronavirus-19. Ebola Screen: Patient denies travel to an Ebola-affected area in the 21 days before illness onset. Initial Sepsis Screen: Does the patient meet any 2 criteria? No. Patient's initial sepsis screen is negative. Does the patient have a suspected source of infection? No. Patient's initial sepsis screen is negative. Risk Assessment: Do you want to hurt yourself or someone else? Patient reports no desire to harm self or others. Onset of symptoms was August 26, 2023. 16:58 Method Of Arrival: Ambulatory ll1 16:58 Acuity: [place] 5 ll1 17:01 Chief complaint: Patient states: Pain to PICC LUE for 2 days. Wants another dressing ll1 change. Triage Assessment: 17:21 General: Appears in no apparent distress. Behavior is calm, cooperative, appropriate ap3 for age. Pain: Denies pain. Neuro: Level of Consciousness is awake, alert, obeys commands, Oriented to person, place, time, situation. Historical: - Allergies: 16:58 No Known Allergies; ll1 - PMHx: 16:58 diabetes mellitus; ll1 - Immunization history:: Adult Immunizations up to date. - Social history:: Smoking status: Patient denies any tobacco usage or history of. Screenin:20 [facility] ED Fall Risk Assessment (Adult) History of falling in the last 3 months, ap3 including since admission No falls in past 3 months (0 pts). Abuse screen: Denies threats or abuse. Nutritional screening: No deficits noted. Tuberculosis screening: No symptoms or risk factors identified. Vital Signs: 17:01 BP 152 / 94; Pulse 103; Resp 16; Temp 99; Pulse Ox 98% ; Weight 81.65 kg; Height 5 ft. ll1 2 in. ; Pain 6/10; 17:01 Body Mass Index 32.92 (81.65 kg, 157.48 cm) ll1 17:01 Pain Scale: Adult ll1 ED Course: 16:38 Patient arrived in ED. am2 16:51 [facility]C [facility] kb 16:51 Lemuel Pickard MD is Attending Physician. kb 16:58 Arm band placed on. ll1 16:59 Triage completed. ll1 17:20 Changed dressing on left PICC line. ap3 17:21 No provider procedures requiring assistance completed. patient leaving with PICC line ap3 in place that was in place when patient arrived. 17:22 Patient has correct armband on for positive identification. Adult w/ patient. Provided ap3 Education on: discharge instructions. Administered Medications: No medications were administered Medication: 17:22 VIS not applicable for this client. ap3 Outcome: 17:08 Discharge ordered by . kb 17:21 Discharged to home ambulatory, ap3 17:21 Condition: good 17:21 Discharge instructions given to patient, family, Instructed on discharge instructions, follow up and referral plans. Demonstrated understanding of instructions, follow-up care, 17:22 Patient left the ED. ap3 Signatures: Verenice Tyler FNP-C FNP-Maricarmen ySkes am2 Maricarmen Galeana RN RN ap3 Jacklyn Montes De Oca RN RN ll1
--- NOTE | 2023-08-28 17:08 | EDPHYS ---
Physician Documentation [facility] Name: Nikita Barros Age: 48 yrs Sex: Male : 1975 Arrival Date: 08/28/2023 Time: 16:24 Bed 9 Private MD: ED Physician Lemuel Pickard HPI: 08/28 17:06 This 48 yrs old Male presents to ER via Ambulatory with complaints of port kb problem/pain. 17:06 Patient is a 48-year-old male who presents to have PICC line checked and dressing kb change. States he wanted to make sure it was not infected and wants the dressing changed because the tape is peeling up.. Severity of symptoms: At their worst the symptoms were mild in the emergency department the symptoms are unchanged. The patient has not experienced similar symptoms in the past. The patient has not recently seen a physician. Historical: - Allergies: 16:58 No Known Allergies; ll1 - PMHx: 16:58 diabetes mellitus; ll1 - Immunization history:: Adult Immunizations up to date. - Social history:: Smoking status: Patient denies any tobacco usage or history of. ROS: 17:05 Constitutional: Negative for fever, chills, and weight loss, kb 17:05 All other systems are negative, Exam: 17:05 Constitutional: This is a well developed, well nourished patient who is awake, alert, kb and in no acute distress. Head/Face: Normocephalic, atraumatic. ENT: Moist Mucous membranes Cardiovascular: Regular rate Respiratory: Respirations even and unlabored. No increased work of breathing. Talking in full sentences Skin: Warm, dry with normal turgor. Normal color. MS/ Extremity: Pulses equal, no cyanosis. Neurovascular intact. Full, normal range of motion. Neuro: Awake and alert, GCS 15, oriented to person, place, time, and situation. Moves all extremities. Normal gait. 17:05 Skin: PICC line in place to left upper arm. No erythema, swelling or drainage noted. Vital Signs: 17:01 BP 152 / 94; Pulse 103; Resp 16; Temp 99; Pulse Ox 98% ; Weight 81.65 kg; Height 5 ft. ll1 2 in. ; Pain 6/10; 17:01 Body Mass Index 32.92 (81.65 kg, 157.48 cm) ll1 17:01 Pain Scale: Adult ll1 MDM: 16:51 Patient medically screened. kb 17:05 Differential diagnosis:. Data reviewed: vital signs, nurses notes. Historians other kb than the Patient: Daughter/Son: son. Counseling: I had a detailed discussion with the patient and/or guardian regarding the historical points, exam findings, and any diagnostic results supporting the discharge/admit diagnosis, the need for outpatient follow up, a family practitioner, to return to the emergency department if symptoms worsen or persist or if there are any questions or concerns that arise at home. 08/28 17:04 Order name: Misc. Order: change PICC dressing; Complete Time: 17:20 kb Administered Medications: No medications were administered Disposition: 08/29 10:02 Co-signature as Attending Physician, Lemuel Pickard MD I reviewed the patient's care rn provided by the Advanced Practice Provider and agree with the diagnosis and treatment plan. Disposition Summary: 08/28/23 17:08 Discharge Ordered Notes: Location: Home kb Condition: Stable kb Diagnosis - Encounter for change or removal of nonsurgical wound dressing - PICC line kb dressing(08/28/23 17:08) Followup: kb - With: Emergency Department - When: As needed - Reason: Worsening of condition Followup: kb - With: Private Physician - When: 2 - 3 days - Reason: Recheck today's complaints, Continuance of care, Re-evaluation by your physician Discharge Instructions: - Discharge Summary Sheet kb - PICC Home Care Guide kb Forms: - Medication Reconciliation Form kb - Thank You Letter kb - Antibiotic Education kb - Prescription Opioid Use kb - Patient Portal Instructions kb - Leadership Thank You Letter kb Signatures: Verenice Tyler FNP-Brittny LUGOP-Lemuel Aparicio MD MD rn Lewis, Lynsay, RN RN ll1 Corrections: (The following items were deleted from the chart) 08/28 17:08 17:08 Encounter for change or removal of nonsurgical wound dressing kb kb
== END 2023-08-28 17:22 | disposition home or self-care (01) ==
LOC: ER 16:24
DX: Z48.00 Encounter for change or removal of nonsurgical wound dressing (principal)
CPT/HCPCS: 99282

== ENCOUNTER 2023-09-02 15:10 | Emergency (ER) | payer SELFPAY ==
--- OUTSIDE RECORDS SUMMARY | 2023-09-02 15:13 | XMS REPORT | Continuity of Care Document ---
:[address] [facility] t Address [address] [facility] [address] [place] [address] Care Team Providers Name Role Phone Unavailable Unavailable Unavailable Problems This patient has no known problems. Allergies, Adverse Reactions, Alerts This patient has no known allergies or adverse reactions. Medications This patient has no known medications. Procedures This patient has no known procedures. Encounters Start End Encounter Admission Attending Care Care Encounter Source Date/Time Date/Time Type Type Clinicians Facility Department ID 2023-09-02 2023-09-02 Outpatient SFA SFA [facility]o 11:09:49 11:09:49 [id number] F Gee 2023-08-27 2023-08-27 Outpatient SFA SFA [facility] 12:11:44 12:11:44 [id number] F Gee 2023-08-19 2023-08-19 Outpatient SFA SFA [facility] 09:54:57 09:54:57 [id number] F Gee 2023-08-18 2023-08-18 Outpatient SFA SFA [facility] 09:02:12 09:02:12 [id number] F Gee 2023-08-16 2023-08-16 Outpatient SFA SFA [facility] 16:14:07 16:14:07 [id number] F Gee 2023-08-11 2023-08-11 Outpatient SFA SFA [id number] [place] 16:09:20 16:09:20 [id number] F Gee 2023-08-04 2023-08-04 Outpatient SFA SFA [id number] [place] 13:33:08 13:33:08 [id number] Terry Gee Results Test Description Test Time Test Comments Results Result Comments Source AEROBIC AND ANAEROBIC CULTURE PROFILE 2023-08-22 15:54:17 Test Item Value Reference Range Interpretation Comme nts CULTURE, ROUTINE SPECIMEN NUMBER: Yesenia CHÁVEZ E, ROUTINE SPECIMEN NUMBER: (test code = 88851) [id number] SPECIMEN COMMENT: R GREAT TOE SOURCE: [...] IN MC G/ML. CULTURE, ANAEROBIC SPECIMEN NUMBER: Yesenia MCKINNEY URE, ANAEROBIC SPECIMEN NUMBER: (test code = 07424) [id number] SPECIMEN COMMENT: R GREAT TOE SOURCE: TOE REP ORT STATUS: FINAL ISOLATE NUMBER 1: ORGAN ISM: 08/22/2023 MODERATE ANAEROBIC ORGAN ISM RECOVERED IDENTIFICATION: PREVOTELLA BIVIA ADDITIONAL OBSE RVATIONS: SUSCEPTIBILITIES NOT ROUTINELY P ERFORMED AND/OR [facility] HAS ESTABLISHED NO CRITERIA FOR SUSCEPTIBILITIE S [id number] 23:55:09 Test Item Value Reference Range Interpretation Comments VANCOMYCIN (test code 4.9 UG/ML SEE BELOW L Vanco mycin = 3038) Recommended Ran ges Trough: 10.0-20 .0 UG/ML Peak: 25. 0-40.0 UG/ML Note: For complicated inf ections (bacteremia, endocarditis, meningitis, etc .), appropriate tro ugh range is 15.0-2 0.0 ug/mL. VANCOMYCIN, [id number] 23:55:09 Test Item Value Reference Range Interpretation Comments VANCOMYCIN, PEAK (test code = 3024) 4.8 UG/ML 25.0-40.0 L VANCOMYCIN, [id number] 23:55:09 Test Item Value Reference Range Interpretation Comments VANCOMYCIN, TROUGH 4.9 UG/ML 10.0-20.0 L Note: Fo r complicated (test code = 3023) infection s (bacteremia, endocarditis,me ningitis, etc.), appropri ate range is 15.0-20.0 ug /mL. UNLESS OTHERWIS E INDICATED, ALL TESTING PERFORMED AT [facility] [address] [place], [place] [address] [place] [address] DIRECTOR: Angella SMITH FRANCIA NUMBER [id number] CAP ACCREDITATION N O. [id number] COMPREHENSIVE METABOLIC [id number] 05:05:25 Test Item Value Reference Range Interpretation Comments GLUCOSE (test code = 2217) 102 MG/DL 70-99 H BUN (test code = 2208) 11 MG/DL 6-20 CREATININE (test code = 2214) 0.60 MG/DL 0.80-1.40 L eGFR (2020 CKD-EPI) (test 118 ML/MIN/1.73 >60 code = 61171) CALC BUN/CREAT (test code = 18 RATIO 6-28 2234) SODIUM (test code = 223) 140 MEQ/L 133-146 POTASSIUM (test code = 2228) 4.5 MEQ/L 3.5-5.4 CHLORIDE (test code = 221) 104 MEQ/L 95-107 CARBON DIOXIDE (test code = 24 MEQ/L 19-31 2205) CALCIUM (test code = 2209) 9.6 [...] 20 U/L 5-50 CBC W/AUTO DIFF WITH [id number] 01:43:15 Test Item Value Reference Range Interpretation [...] RBCS 0.00 K/UL 0.00-0.11 (test code = 17812) VANCOMYCIN, [id number] 07:20:40 Test Item Value Reference Range Interpretation Comments VANCOMYCIN, TROUGH 27.1 UG/ML 10.0-20.0 H Note: Fo r complicated (test code = 3023) infection s (bacteremia, endocarditis,me ningitis, etc.), appropri ate range is 15.0-20.0 ug /mL. UNLESS OTHERWIS E INDICATED, ALL TESTING PERFORMED AT [facility] [place] [address] [place], [place] [id number] [place] [address] DIRECTOR: Angella SMITH FRANCIA NUMBER [id number] CAP ACCREDITATION N O. [id number] COMPREHENSIVE METABOLIC [id number] 05:31:22 Test Item Value Reference Range Interpretation Comments GLUCOSE (test code = 2217) 225 MG/DL 70-99 H BUN (test code = 220) 11 MG/DL 6-20 CREATININE (test code = 221) 0.70 MG/DL 0.80-1.40 L eGFR (2020 CKD-EPI) (test 113 ML/MIN/1.73 >60 code = 37669) CALC BUN/CREAT (test code = 16 RATIO 05-04) SODIUM (test code = 223) 134 MEQ/L 133-146 POTASSIUM (test code = 2228) 4.5 MEQ/L 3.5-5.4 CHLORIDE (test code = 221) 98 MEQ/L 95-107 CARBON DIOXIDE (test code = 25 MEQ/L 2205) CALCIUM (test code = 220) 9.4 MG/DL 8.5-10.5 PROTEIN, TOTAL (test code [...] code = 2219) 24 U/L 5-50 LIPID [id number] 05:31:22 Test Item Value Reference Range Interpretation [...] MOREINFORMATION , SEE CLIENT ANNOUNCE MENT AT [email or web address] RISK RATIO LDL/HDL 2.63 RATIO <3.55 (test code = 2238) HEMOGLOBIN [id number] 05:17:52 Test Item Value Reference Range Interpretation Comments HEMOGLOBIN A1c (test 11.4 % 4.2-5.6 H AMERIC AN DIABETES code = 38545) ASSOCIATION IDELINES FOR HGB A1C: PREDIABETES/INC REASED [...] LABORATORY C ONSULTATION. CBC W/AUTO DIFF WITH [id number] 03:40:10 Test Item Value Reference Range Interpretation [...] message] code = 1065) WBC'S The system Pict[employer] generated this result transmitted ref erence range: [...] 0.00-0.11 UNLESS O THERWISE (test code = 58484) INDICATE D, ALL TESTING PERFORM ED AT [facility] [place] [address] [facility] [place] [address] SARBJIT FISHER DIRECTOR: Angella SMITH FRANCIA NUMBER [id number] CAP ACCREDITATION N O. [id number]
[2023-09-02 16:42] LABS: Absolute Lymphocytes (CBC) 1.6 K/uL (0.7-4.9); Hematocrit 39.3 % (39.6-49.0); Lymphocytes % 20.7 % (15.3-44.8); MCV 86.4 fL (80-100); Platelets 244 thou/uL (152-406); RBC Red Blood Cell Count 4.55 M/uL (4.33-5.43)
[2023-09-02 16:58] LABS: Protime INR 0.99
--- NOTE | 2023-09-02 16:58 | RAD REPORT ---
EXAM DESCRIPTION: RAD - Foot Right 3 View - 09/02/2023 4:27 pm CLINICAL HISTORY: Right foot pain. 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 Cortical irregularity involves the third metatarsal head and base of the third proximal phalanx proba doe osteomyelitis. Fourth and fifth phalanges is been resected No fracture or dislocation
[2023-09-02 17:00] LABS: Albumin 3.2 g/dL (3.4-5.0); Bilirubin Total 0.2 mg/dL (0.2-1.0); Potassium 3.9 mEq/L (3.5-5.1); Protein, Total 7.8 g/dL (6.4-8.2)
--- NOTE | 2023-09-02 17:34 | ER ---
Nurse's Notes [facility] Name: Nikita Barros Age: 48 yrs Sex: Male : 1975 Arrival Date: 09/02/2023 Time: 15:10 Bed 17 Private MD: Diagnosis: Diabetic wound to right great toe Presentation: 09/02 15:22 Chief complaint: Patient states: foot abscess worsening, on home IV antibiotics. tm6 Coronavirus screen: Vaccine status: Patient reports being unvaccinated. Client denies travel out of the [place] in the last 14 days. Client indicates they have traveled out of the [place] in the last 14 days. At this time, unable to obtain information related to travel outside the [place] Ebola Screen: Patient negative for fever greater than or equal to 101.5 degrees Fahrenheit, and additional compatible Ebola Virus Disease symptoms Patient denies exposure to infectious person. Patient denies travel to an Ebola-affected area in the 21 days before illness onset. No symptoms or risks identified at this time. Initial Sepsis Screen: Does the patient meet any 2 criteria? No. Patient's initial sepsis screen is negative. Does the patient have a suspected source of infection? No. Patient's initial sepsis screen is negative. Risk Assessment: Do you want to hurt yourself or someone else? Patient reports no desire to harm self or others. Onset of symptoms was September 02, 2023. 15:22 Method Of Arrival: Ambulatory tm6 15:22 Acuity: [place] 3 tm6 Triage Assessment: 15:24 General: Appears in no apparent distress. Behavior is calm, cooperative, appropriate tm6 for age. Pain: Complains of pain in right foot. Neuro: Level of Consciousness is awake, alert, obeys commands, Oriented to person, place, time, situation. Respiratory: Airway is patent Respiratory effort is even, unlabored, Respiratory pattern is regular, symmetrical. Derm: Wound noted right foot Wound is clean. Historical: - Allergies: 15:24 No Known Allergies; tm6 - PMHx: 15:24 diabetes mellitus; tm6 - Immunization history:: Adult Immunizations up to date. - Social history:: Smoking status: Patient denies any tobacco usage or history of. Smoking status: Patient denies any tobacco usage or history of. Patient/guardian denies using alcohol. Screenin:[facility] Fall Risk Assessment (Adult) Score/Fall Risk Level 0 - 2 = Low Risk nj1 Oriented to surroundings, Maintained a safe environment, Hourly rounding (assess needs \T\ fall precautionary measures) done. Abuse screen: Denies threats or abuse. Denies injuries from another. Nutritional screening: No deficits noted. Tuberculosis screening: No symptoms or risk factors identified. Assessment: 16:51 Reassessment: No changes from previously documented assessment. nj1 17:45 Reassessment: Patient appears in no apparent distress at this time. Patient and/or nj1 family updated on plan of care and expected duration. Pain level reassessed. Patient is alert, oriented x 3, equal unlabored respirations, skin warm/dry/pink. 18:45 Reassessment: Patient appears in no apparent distress at this time. Patient and/or nj1 family updated on plan of care and expected duration. Pain level reassessed. Patient is alert, oriented x 3, equal unlabored respirations, skin warm/dry/pink. Vital Signs: 15:22 BP 157 / 93; Pulse 88; Resp 100; Temp 97.8(TE); Pulse Ox 100% ; Weight 82.55 kg; Height tm6 5 ft. 1 in. ; Pain 0/10; 16:52 BP 164 / 98; Pulse 86; Resp 22; Pulse Ox 99% ; nj1 17:45 BP 132 / 101; Pulse 86; Resp 20; Pulse Ox 99% ; nj1 18:45 BP 165 / 99; Pulse 83; Resp 19; Pulse Ox 99% ; nj1 15:22 Body Mass Index 34.39 (82.55 kg, 154.94 cm) tm6 15:22 Pain Scale: Adult tm6 ED Course: 15:12 Patient arrived in ED. ts1 15:18 Miguel Garcia MD is Attending Physician. rt 15:24 Triage completed. tm6 15:24 Arm band placed on right wrist. tm6 16:29 Foot Right 3 View XRAY In Process Unspecified. EDMS 16:50 Meri Mosher, ROHAN is Primary Nurse. nj1 16:51 Patient has correct armband on for positive identification. Bed in low position. Call [facility] light in reach. 16:53 Blood Culture Adult (2) Sent. bc6 16:53 CMP Sent. bc6 16:53 Lactate w/ 2H reflex if indic. Sent. bc6 16:53 Protime (+inr) Sent. bc6 16:53 Ptt, Activated Sent. bc6 16:53 Inserted saline lock: 20 gauge in left antecubital area, using aseptic technique. Blood bc6 collected. 17:33 Amol Meza MD is Referral Physician. rt 19:00 Provided Education on: discharge instructions. nj1 19:00 No provider procedures requiring assistance completed. nj1 19:00 IV discontinued, intact, bleeding controlled. nj1 Administered Medications: No medications were administered Medication: 19:00 VIS not applicable for this client. nj1 Outcome: 17:33 Discharge ordered by MD. rt 19:00 Discharged to home ambulatory, nj1 19:00 Condition: stable 19:00 Discharge instructions given to patient, Instructed on discharge instructions, follow up and referral plans. Demonstrated understanding of instructions, follow-up care, 19:08 Patient left the ED. nj1 Signatures: Dispatcher [employer] EDMS Carie Bonilla RN RN ld1 Miguel Garcia MD MD rt Suzanne Jones bc6 Meri Mosher RN RN nj1 Lesli Schwartz, PAS PAS ts1 Alice Leslie RN RN tm6
--- NOTE | 2023-09-02 17:34 | EDPHYS ---
Physician Documentation [facility] Name: Nikita Barros Age: 48 yrs Sex: Male : 1975 Arrival Date: 09/02/2023 Time: 15:10 Bed 17 Private MD: ED Physician Miguel Garcia HPI: 09/02 17:52 This 48 yrs old Male presents to ER via Ambulatory with complaints of RT FOOT rt ABSCESS. 17:52 Patient presents to the ED for continued about diabetic foot wound to the right foot. rt He is currently on IV antibiotics for an osteo. Recently had his great toe amputated. Patient states that a doctor in [place] told him to come further eval after an x-ray was performed. He states that he does not believe that the foot wound is worsening, denies any pus drainage. Denies other acute complaints at this time, symptoms are mild in severity, no other aggravating or alleviating factors.. Historical: - Allergies: 15:24 No Known Allergies; tm6 - PMHx: 15:24 diabetes mellitus; tm6 - Immunization history:: Adult Immunizations up to date. - Social history:: Smoking status: Patient denies any tobacco usage or history of. Smoking status: Patient denies any tobacco usage or history of. Patient/guardian denies using alcohol. ROS: 17:52 Constitutional: Negative for fever, chills, and weight loss, Cardiovascular: Negative rt for chest pain, palpitations, and edema, Respiratory: Negative for shortness of breath, cough, wheezing, and pleuritic chest pain, Abdomen/GI: Negative for abdominal pain, nausea, vomiting, diarrhea, and constipation, Neuro: Negative for headache, weakness, numbness, tingling, and seizure, Psych: Negative for depression, anxiety, suicide ideation, homicidal ideation, and hallucinations, 17:52 MS/extremity: Positive for Wound, negative for injury, Exam: 17:51 ECG was reviewed by the Attending Physician. rt 17:52 Constitutional: This is a well developed, well nourished patient who is awake, alert, rt and in no acute distress. Head/Face: Normocephalic, atraumatic. Chest/axilla: Normal chest wall appearance and motion. Nontender with no deformity. No lesions are appreciated. Cardiovascular: Regular rate and rhythm with a normal S1 and S2. No gallops, murmurs, or rubs. Normal PMI, no JVD. No pulse deficits. Respiratory: Lungs have equal breath sounds bilaterally, clear to auscultation and percussion. No rales, rhonchi or wheezes noted. No increased work of breathing, no retractions or nasal flaring. Abdomen/GI: Soft, non-tender, with normal bowel sounds. No distension or tympany. No guarding or rebound. No evidence of tenderness throughout. Skin: Warm, dry with normal turgor. Normal color with no rashes, no lesions, and no evidence of cellulitis. Neuro: Awake and alert, GCS 15, oriented to person, place, time, and situation. Cranial nerves II-XII grossly intact. Motor strength 5/5 in all extremities. Sensory grossly intact. Cerebellar exam normal. Normal gait. 17:52 Musculoskeletal/extremity: Amputation noted to the right great toe, wound surgery still open, no purulent drainage, sutures are still in place. Older appearing wound from amputations to the fourth and fifth digits, also no purulence, erythema. No signs of cellulitis on the foot. Pulses, motor, sensation are intact.. Vital Signs: 15:22 BP 157 / 93; Pulse 88; Resp 100; Temp 97.8(TE); Pulse Ox 100% ; Weight 82.55 kg; Height tm6 5 ft. 1 in. ; Pain 0/10; 16:52 BP 164 / 98; Pulse 86; Resp 22; Pulse Ox 99% ; nj1 17:45 BP 132 / 101; Pulse 86; Resp 20; Pulse Ox 99% ; nj1 18:45 BP 165 / 99; Pulse 83; Resp 19; Pulse Ox 99% ; nj1 15:22 Body Mass Index 34.39 (82.55 kg, 154.94 cm) tm6 15:22 Pain Scale: Adult tm6 MDM: 15:31 Patient medically screened. rt 17:52 Differential Diagnosis Cellulitis, abscess, osteomyelitis. Data reviewed: vital signs, rt nurses notes, old medical records, lab test result(s), radiologic studies. Consideration of Admission/Observation Escalation of care including admission/observation considered. Management of patient was discussed with the following: Airborne Operations: Discussed with the patient surgeon, states that he can see the patient next week in the office,. Test considered but Not performed: CT: Low suspicion for abscess, necrotizing fasciitis, CT scan not indicated. Care significantly affected by the following chronic conditions: Diabetes. Counseling: I had a detailed discussion with the patient and/or guardian regarding the historical points, exam findings, and any diagnostic results supporting the discharge/admit diagnosis, lab results, radiology results, the need for outpatient follow up, to return to the emergency department if symptoms worsen or persist or if there are any questions or concerns that arise at home. 09/02 15:28 Order name: Blood Culture Adult (2) rt 09/02 15:28 Order name: CBC with Diff; Complete Time: 17:04 rt 09/02 15:28 Order name: CMP; Complete Time: 17:04 rt 09/02 15:28 Order name: Lactate w/ 2H reflex if indic.; Complete Time: 17:04 rt 09/02 15:28 Order name: Protime (+inr); Complete Time: 17:04 rt 09/02 15:28 Order name: Ptt, Activated; Complete Time: 17:04 rt 09/02 15:28 Order name: Foot Right 3 View XRAY; Complete Time: 17:04 rt 09/02 15:28 Order name: Accucheck; Complete Time: 17:02 rt 09/02 15:28 Order name: Cardiac monitoring; Complete Time: 16:50 rt 09/02 15:28 Order name: IV Saline Lock - Large Bore; Complete Time: 16:53 rt 09/02 15:28 Order name: Labs collected and sent; Complete Time: 16:51 rt 09/02 15:28 Order name: O2 Per Protocol; Complete Time: 16:51 rt 09/02 15:28 Order name: O2 Sat Monitoring; Complete Time: 16:51 rt 09/02 15:28 Order name: Vital Signs; Complete Time: 16:51 rt EC:51 Rate is 81 beats/min. Rhythm is regular, Normal Sinus Rhythm with No ectopy. QRS Ceres rt is Normal. OR interval is normal. QRS interval is normal. QT interval is normal. No Q waves. T waves are Normal. No ST changes noted. Interpreted by me. Administered Medications: No medications were administered Disposition Summary: 09/02/23 17:33 Discharge Ordered Notes: Location: Home rt Problem: an ongoing problem rt Symptoms: are unchanged rt Condition: Stable rt Diagnosis - Diabetic wound to right great toe rt Followup: rt - With: Amol Meza MD - When: 2 - 3 days - Reason: Discharge Instructions: - Discharge Summary Sheet rt - How to Change Your Wound Dressing rt Forms: - Medication Reconciliation Form rt - Thank You Letter rt - Antibiotic Education rt - Prescription Opioid Use rt - Patient Portal Instructions rt - Leadership Thank You Letter rt Signatures: Dispatcher [employer] Carie Cadena RN RN ld1 Miguel Garcia MD MD rt Alice Leslie RN RN tm6
[2023-09-02 19:37] VITALS: TEMP 97.8
[2023-09-02 19:38] VITALS: O2SAT 99
[2023-09-02 19:42] VITALS: BP 165/99
--- NOTE | 2023-09-06 08:02 | EKG ---
Test Date: 2023-09-02 Test Time: 16:40:04 Cross Tie Cutter: EDDI MEASUREMENT RESULTS: Intervals: Rate: 81 GA: 142 QRSD: 80 QT: 370 QTc: 429 [place]: P: 50 GA: 142 QRS: 99 T: -8 INTERPRETIVE STATEMENTS: Normal sinus rhythm Normal ECG Compared to ECG 07/24/2023 12:21:58 T-wave abnormality no longer present Electronically Signed On 09-06-23 07:54:37 CDT by Jonny Laughlin
== END 2023-09-02 19:08 | disposition home or self-care (01) ==
LOC: ER 15:10
DX: L02.611 Cutaneous abscess of right foot (principal); E11.621 Type 2 diabetes mellitus with foot ulcer; Z89.411 Acquired absence of right great toe
CPT/HCPCS: 36415; 80053; 83605; 85025; 85610; 85730; 87040; 93005; 99283

== ENCOUNTER 2023-09-14 17:32 | Emergency (ER) | payer SELFPAY ==
--- OUTSIDE RECORDS SUMMARY | 2023-09-14 17:54 | XMS REPORT | Continuity of Care Document ---
:1975 Author Organization [facility] t Address [address] [facility] [address] [place] [address] Care Team Providers Name Role Phone Unavailable Unavailable Unavailable Problems This patient has no known problems. Allergies, Adverse Reactions, Alerts This patient has no known allergies or adverse reactions. Medications This patient has no known medications. Procedures This patient has no known procedures. Encounters Start End Encounter Admission Attending Care Care Encounter Source Date/Time Date/Time Type Type Clinicians Facility Department ID 2023-09-09 2023-09-09 Outpatient [facility] 15:08:46 15:08:46 [id number] F Gee 2023-09-02 2023-09-02 Outpatient [facility] 11:09:49 11:09:49 [id number] F Gee 2023-08-27 2023-08-27 Outpatient [facility]FA [facility] 12:11:44 12:11:44 [id number] F Gee 2023-08-19 2023-08-19 Outpatient [facility]FA [facility] 09:54:57 09:54:57 [id number] F Gee 2023-08-18 2023-08-18 Outpatient SFA [facility] 09:02:12 09:02:12 [id number] F Gee 2023-08-16 2023-08-16 Outpatient SFA SFA [id number] [place] 16:14:07 16:14:07 [id number] F Gee 2023-08-11 2023-08-11 Outpatient SFA SFA [id number] [place] 16:09:20 16:09:20 [id number] F Gee 2023-08-04 2023-08-04 Outpatient SFA SFA [id number] [place] 13:33:08 13:33:08 [id number] F Gee Results Test Description Test Time Test Comments Results Result Comments Source AEROBIC AND ANAEROBIC CULTURE PROFILE 2023-08-22 15:54:17 Test Item Value Reference Range Interpretation Comme nts CULTURE, ROUTINE SPECIMEN NUMBER: Yesenia CHÁVEZ E, ROUTINE SPECIMEN NUMBER: (test code = 58412) [id number] SPECIMEN COMMENT: R GREAT TOE SOURCE: [...] URE, ANAEROBIC SPECIMEN NUMBER: (test code = 74881) [id number] SPECIMEN COMMENT: R GREAT TOE SOURCE: TOE REP ORT STATUS: FINAL ISOLATE NUMBER 1: ORGAN ISM: 08/22/2023 MODERATE ANAEROBIC ORGAN ISM RECOVERED IDENTIFICATION: PREVOTELLA BIVIA ADDITIONAL OBSE RVATIONS: SUSCEPTIBILITIES NOT ROUTINELY P ERFORMED AND/OR [facility] HAS ESTABLISHED NO CRITERIA FOR SUSCEPTIBILITIE S [id number] 23:55:09 Test Item Value Reference Range Interpretation Comments VANCOMYCIN (test code 4.9 UG/ML SEE BELOW L Vanco mycin = 3038) Recommended Ran ges Trough: 10.0-20 .0 UG/ML Peak: 25. 0-40.0 UG/ML Note: For complicated inf ections (bacteremia, endocarditis, meningitis, etc .), appropriate tro ugh range is 15.0-2 0.0 ug/mL. VANCOMYCIN, [id number] 23:55:09 Test Item Value Reference Range Interpretation Comments VANCOMYCIN, PEAK (test code = 3024) 4.8 UG/ML 25.0-40.0 L VANCOMYCIN, [id number] 23:55:09 Test Item Value Reference Range Interpretation Comments VANCOMYCIN, TROUGH 4.9 UG/ML 10.0-20.0 L Note: Fo r complicated (test code = 3023) infection s (bacteremia, endocarditis,me ningitis, etc.), appropri ate range is 15.0-20.0 ug /mL. UNLESS OTHERWIS E INDICATED, ALL TESTING PERFORMED AT [facility] [employer] [address] [place] [id number] [place] [address] DIRECTOR: Angella SMITH FRANCIA NUMBER [id number] CAP ACCREDITATION N O. [id number] COMPREHENSIVE METABOLIC [id number] 05:05:25 Test Item Value Reference Range Interpretation Comments GLUCOSE (test code = 2217) 102 MG/DL 70-99 H BUN (test code = 2208) 11 MG/DL 6-20 CREATININE (test code = 2214) 0.60 MG/DL 0.80-1.40 L eGFR (2020 CKD-EPI) (test 118 ML/MIN/1.73 >60 code = 24144) CALC BUN/CREAT (test code = 18 RATIO [...] PHOSPHATASE (test 71 U/L 40-118 code = 2203) AST (test code = 2218) 19 U/L 9-50 ALT (test code = 2219) 20 U/L 5-50 CBC W/AUTO DIFF WITH [id number] 01:43:15 Test Item Value Reference Range Interpretation [...] RBCS 0.00 K/UL 0.00-0.11 (test code = 73016) VANCOMYCIN, [id number] 07:20:40 Test Item Value Reference Range Interpretation Comments VANCOMYCIN, TROUGH 27.1 UG/ML 10.0-20.0 H Note: Fo r complicated (test code = 3023) infection s (bacteremia, endocarditis,me ningitis, etc.), appropri ate range is 15.0-20.0 ug /mL. UNLESS OTHERWIS E INDICATED, ALL TESTING PERFORMED AT [facility] [employer] [address] [place] [id number] [place] [address] DIRECTOR: Angella SMITH FRANCIA NUMBER [id number] CAP ACCREDITATION N O. [id number] COMPREHENSIVE METABOLIC [id number] 05:31:22 Test Item Value Reference Range Interpretation Comments GLUCOSE (test code = 7) 225 MG/DL 70-99 H BUN (test code = 2207) 11 MG/DL 6-20 CREATININE (test code = 2213) 0.70 MG/DL 0.80-1.40 L eGFR (2020 CKD-EPI) (test 113 ML/MIN/1.73 >60 code = 19198) CALC BUN/CREAT (test code = 16 RATIO 05-04) SODIUM (test code = 223) 134 MEQ/L 133-146 POTASSIUM (test code = 2228) 4.5 MEQ/L 3.5-5.4 CHLORIDE (test code = 2215) 98 MEQ/L 95-107 CARBON DIOXIDE (test code = 25 MEQ/L -2205) CALCIUM (test code = 220) 9.4 MG/DL [...] code = 2219) 24 U/L 5-50 LIPID [id number] 05:31:22 Test Item Value Reference Range Interpretation [...] MOREINFORMATION , SEE CLIENT ANNOUNCE MENT AT [email or web address] [email or web address] RATIO LDL/HDL 2.63 RATIO <3.55 (test code = 2238) HEMOGLOBIN [id number] 05:17:52 Test Item Value Reference Range Interpretation Comments HEMOGLOBIN A1c (test 11.4 % 4.2-5.6 H [employer] AN DIABETES code = 34127) ASSOCIATION [employer] FOR HGB A1C: PREDIABETES/INC REASED [...] LABORATORY C ONSULTATION. CBC W/AUTO DIFF WITH [id number] 03:40:10 Test Item Value Reference Range Interpretation [...] message] code = 1065) WBC'S The system [employer] generated this result transmitted ref erence range: [...] 0.00-0.11 UNLESS O THERWISE (test code = 06220) INDICATE D, ALL TESTING PERFORM ED AT [facility] [employer] [address] [place] [address] SARBJIT FISHER DIRECTOR: Angella SMITH FRANCIA NUMBER [id number] CAP ACCREDITATION N O. [id number]
--- NOTE | 2023-09-14 18:18 | EDPHYS ---
Physician Documentation [facility] Name: Nikita Barros Age: 48 yrs Sex: Male : 1975 Arrival Date: 09/14/2023 Time: 17:32 Bed 10 Private MD: ED Physician Miguel Garcia HPI: 09/14 18:16 This 48 yrs old Male presents to ER via Ambulatory with complaints of Dialysis kb Port Problem. 18:17 Patient is a 48-year-old male with a history of diabetes who is being treated with IV kb antibiotics for an infection in his foot. Reports he came in today to have his PICC line dressing changed.. Historical: - Allergies: 17:51 No Known Allergies; hb - PMHx: 17:51 diabetes mellitus; hb - Immunization history:: Adult Immunizations up to date. - Social history:: Smoking status: Patient denies any tobacco usage or history of. ROS: 18:14 Constitutional: Negative for fever, chills, and weight loss, kb 18:14 All other systems are negative, Exam: 18:14 Constitutional: This is a well developed, well nourished patient who is awake, alert, kb and in no acute distress. Head/Face: Normocephalic, atraumatic. ENT: Moist Mucous membranes Cardiovascular: Regular rate Respiratory: Respirations even and unlabored. No increased work of breathing. Talking in full sentences Skin: Warm, dry with normal turgor. Normal color. MS/ Extremity: Pulses equal, no cyanosis. Neurovascular intact. Full, normal range of motion. Neuro: Awake and alert, GCS 15, oriented to person, place, time, and situation. Moves all extremities. Normal gait. 18:14 Musculoskeletal/extremity: PICC line in place to left upper ext. Vital Signs: 17:50 BP 164 / 98; Pulse 89; Resp 16; Temp 98.3; Pulse Ox 100% on R/A; hb MDM: 17:52 Patient medically screened. kb 18:15 Data reviewed: vital signs, nurses notes. kb 18:17 Counseling: I had a detailed discussion with the patient and/or guardian regarding the kb historical points, exam findings, and any diagnostic results supporting the discharge/admit diagnosis, the need for outpatient follow up, a family practitioner, to return to the emergency department if symptoms worsen or persist or if there are any questions or concerns that arise at home. 09/14 17:53 Order name: Misc. Order: change picc dressing; Complete Time: 18:50 kb Administered Medications: No medications were administered Disposition: 20:01 Co-signature as Attending Physician, Miguel Garcia MD I reviewed the patient's care rt provided by the Advanced Practice Provider and agree with the diagnosis and treatment plan. Disposition Summary: 09/14/23 18:18 Discharge Ordered Notes: Location: Home kb Condition: Stable kb Diagnosis - Encounter for PICC line dressing change kb Followup: kb - With: Emergency Department - When: As needed - Reason: Worsening of condition Followup: kb - With: Private Physician - When: 2 - 3 days - Reason: Recheck today's complaints, Continuance of care, Re-evaluation by your physician Discharge Instructions: - Discharge Summary Sheet kb - PICC Home Care Guide kb Forms: - Medication Reconciliation Form kb - Thank You Letter kb - Antibiotic Education kb - Prescription Opioid Use kb - Patient Portal Instructions kb - Leadership Thank You Letter kb Signatures: Verenice Tyler FNP-C FNP-Gladys Waterman, RN RN Miguel Garcia MD MD rt
--- NOTE | 2023-09-14 18:18 | ER ---
Nurse's Notes [facility] Name: Nikita Barros Age: 48 yrs Sex: Male : 1975 Arrival Date: 09/14/2023 Time: 17:32 Bed 10 Private MD: Diagnosis: Encounter for PICC line dressing change Presentation: 09/14 17:50 Chief complaint: Wants PICC line dressing changed. Coronavirus screen: At this time, hb the client does not indicate any symptoms associated with coronavirus-19. Ebola Screen: No symptoms or risks identified at this time. Initial Sepsis Screen: Does the patient meet any 2 criteria? No. Patient's initial sepsis screen is negative. Does the patient have a suspected source of infection? No. Patient's initial sepsis screen is negative. Risk Assessment: Do you want to hurt yourself or someone else? Patient reports no desire to harm self or others. Onset of symptoms was September 14, 2023. 17:50 Method Of Arrival: Ambulatory hb 17:50 Acuity: [place] 4 hb Historical: - Allergies: 17:51 No Known Allergies; hb - PMHx: 17:51 diabetes mellitus; hb - Immunization history:: Adult Immunizations up to date. - Social history:: Smoking status: Patient denies any tobacco usage or history of. Screenin:52 [facility] ED Fall Risk Assessment (Adult) Score/Fall Risk Level 0 - 2 = Low Risk. Abuse iw screen: Denies threats or abuse. Denies injuries from another. Assessment: 18:50 Reassessment: Patient appears in no apparent distress at this time. Patient and/or iw family updated on plan of care and expected duration. Pain level reassessed. Patient is alert, oriented x 3, equal unlabored respirations, skin warm/dry/pink. General: Appears in no apparent distress. Pain: Denies pain. Vital Signs: 17:50 BP 164 / 98; Pulse 89; Resp 16; Temp 98.3; Pulse Ox 100% on R/A; hb ED Course: 17:33 Patient arrived in ED. rg4 17:44 Verenice Tyler FNP-C is PHCP. kb 17:44 Miguel Garcia MD is Attending Physician. kb 17:51 Triage completed. hb 17:51 Arm band placed on. hb 18:34 Odilia Osorio, RN is Primary Nurse. iw Administered Medications: No medications were administered Outcome: 18:18 Discharge ordered by . kb 18:53 Patient left the ED. iw Signatures: Verenice Tyler, JESSI-C JESSI-Odilia Lowe, RN RN Gladys Ricks, RN RN Clotilde Candelaria rg4
[2023-09-14 19:18] VITALS: BP 164/98; TEMP 98.3; O2SAT 100
== END 2023-09-14 18:53 | disposition home or self-care (01) ==
LOC: ER 17:32
DX: Z48.01 Encounter for change or removal of surgical wound dressing (principal)
CPT/HCPCS: 99281